=== PATIENT | male | born 1940 | race Caucasian/White ===

== ENCOUNTER 2020-03-07 01:36 | Inpatient (IN) | payer MEDICARE, MEDICAID ==
[~2020-03-07] VITALS: Ht 180.3 cm; Wt 113.1 kg
[2020-03-07] VITALS (31 sets, daily range): BP systolic 82–157; BP diastolic 37–73
[2020-03-07] MEDS ORDERED: PIP/TAZO PER PHARMACY MC PRN (02:45)
[2020-03-07] MEDS ORDERED: ONDANSETRON PF 4 MG/2 ML VIAL. IVP PRN (02:45)
[2020-03-07] MEDS ORDERED: NOREPINEPHRINE VIAL 8 MG in IV DEXTROSE 5% 250 ML IV PRN (02:45)
[2020-03-07] MEDS ORDERED: IV NORMAL SALINE 1000ML BAG 1,000 ML IV ONE (03:00)
[2020-03-07 03:26] LABS: RED BLOOD COUNT 2.01 x10^6/uL (4.30-5.70); RED CELL DISTRIBUTION WIDTH 14.3 % (11.5-14.5); WHITE BLOOD COUNT 6.2 x10^3/uL (4.0-11.0)
[2020-03-07 03:28] LABS: HEMATOCRIT 18.5 % (39.0-53.0); HEMOGLOBIN 6.4 g/dL (13.0-17.5)
[2020-03-07 03:35] LABS: CALCIUM 7.2 mg/dL (8.5-10.1); CREATININE 1.7 mg/dL (0.7-1.3); GFR 39.1; POTASSIUM 4.7 mmol/L (3.5-5.1)
[2020-03-07 03:41] LABS: ALBUMIN 2.3 g/dL (3.4-5.0); ALBUMIN/GLOBULIN RATIO 0.9 (1.0-1.7); TOTAL BILIRUBIN 0.1 mg/dL (0.2-1.0); TOTAL PROTEIN 4.8 g/dL (6.4-8.2)
[2020-03-07] MEDS: PANTOPRAZOLE SODIUM IV DRIP 80 MG in IV NORMAL SALINE 100ML 100 ML IV SCH ×2 (05:22→18:00)
[2020-03-07] MEDS ORDERED: ATROVENT HFA12.9 GM IH (06:08)
[2020-03-07] MEDS ORDERED: LISI2.5T PO (06:08)
[2020-03-07] MEDS ORDERED: MAGN400T44 PO (06:08)
[2020-03-07] MEDS ORDERED: HYDR-2761 PO (06:08)
[2020-03-07] MEDS ORDERED: FENO145T3 PO (06:08)
[2020-03-07] MEDS ORDERED: LOPE2TAB27 PO (06:08)
[2020-03-07] MEDS ORDERED: MEMA10TA PO (06:08)
[2020-03-07] MEDS ORDERED: ACET325T9 PO (06:08)
[2020-03-07] MEDS ORDERED: BREO ELLIPTA 11 EACH IH (06:08)
[2020-03-07] MEDS ORDERED: ALBU2.5V8 IH (06:08)
[2020-03-07] MEDS ORDERED: METF-658 PO (06:08)
[2020-03-07] MEDS ORDERED: ASPI1CPM PO (06:08)
[2020-03-07] MEDS ORDERED: CHOL500021 PO (06:08)
[2020-03-07] MEDS ORDERED: DONE10TA7 PO (06:08)
[2020-03-07] MEDS: PIPERACILLIN/TAZOBACTAM 2.25 GM in IV NORMAL SALINE 50ML 50 ML IV SCH ×3 (11:58→18:21)
--- NOTE | 2020-03-07 12:10 | NUR ---
IP: Pt COVID tested on 03/05/20 while at [facility] is confirmed positive requiring airborne/contact precautions using a face shield.
--- NOTE | 2020-03-07 12:37 | PDOC2 ---
GI CONSULT Reason For Consult: GI bleed HPI: HPI: 79 y/o male w/ dementia from [facility]. Seen in ER there from [facility]. +COVID-19. Per nurse and records, "vomiting blood" and dark stools. Was on aggrenox. H/o impulsivity and aggression. CT C/A/P w/ high density material in stomach, diverticulosis, cholelithiasis, left renal calculus, 5mm CLAIRE nodule. Records reviewed - h/o constipation, was on dysphagia diet. Transfusion in process, on PPI drip. PMH: PMH: HTN, COPD, dementia, DM, HLD, LBP, CAD, seasonal allergies ROS: Per HPI. Vitals: Vitals: Vital Signs Date Time Temp Pulse Resp B/P (MAP) Pulse Ox O2 Delivery O2 Flow Rate FiO2 03/07/20 12:00 Room Air 03/07/20 12:00 98.3 45 28 113/48 (69) 97 98.3 Labs: Labs: Laboratory Tests Test 03/07/20 03:10 White Blood Count 6.2 x10^3/uL (4.0-11.0) Red Blood Count 2.01 x10^6/uL (4.30-5.70) Hemoglobin 6.4 g/dL (13.0-17.5) Hematocrit 18.5 % (39.0-53.0) Mean Corpuscular Volume 92 fL (79-100) Mean Corpuscular Hemoglobin 32 pg (25-35) Mean Corpuscular Hemoglobin Concent 35 g/dL (31-37) Red Cell Distribution Width 14.3 % (11.5-14.5) Platelet Count 180 x10^3/uL (140-400) Sodium Level 143 mmol/L (136-145) Potassium Level 4.7 mmol/L (3.5-5.1) Chloride Level 113 mmol/L (98-107) Carbon Dioxide Level 24 mmol/L (21-32) Anion Gap 6 (6-14) Blood Urea Nitrogen 50 mg/dL (8-26) Creatinine 1.7 mg/dL (0.7-1.3) Estimated GFR (Cockcroft-Gault) 39.1 BUN/Creatinine Ratio 29 (6-20) Glucose Level 108 mg/dL (70-99) Calcium Level 7.2 mg/dL (8.5-10.1) Total Bilirubin 0.1 mg/dL (0.2-1.0) Aspartate Amino Transf (AST/SGOT) 15 U/L (15-37) Alanine Aminotransferase (ALT/SGPT) 15 U/L (16-63) Alkaline Phosphatase 28 U/L (46-116) Lactate Dehydrogenase 106 U/L (85-227) Troponin I Quantitative 0.274 ng/mL (0.000-0.055) Total Protein 4.8 g/dL (6.4-8.2) Albumin 2.3 g/dL (3.4-5.0) Albumin/Globulin Ratio 0.9 (1.0-1.7) Allergies: Coded Allergies: No Known Drug Allergies (Unverified , 03/07/20) Medications: Current Medications Medications (Trade) Dose Ordered Sig/Frieda Route PRN Reason Start Time Stop Time Status Last Admin Dose Admin Linezolid/Dextrose 300 ml @ 300 mls/hr Q12HR IV 03/07/20 05:00 03/07/20 10:43 Sodium Chloride 1,000 ml @ 30 mls/hr 1X ONCE IV 03/07/20 03:00 03/08/20 12:19 03/07/20 03:00 Pantoprazole Sodium 80 mg/ Sodium Chloride 100 ml @ 10 mls/hr Q10H IV 03/07/20 03:00 03/10/20 02:59 03/07/20 05:22 Piperacillin Sod/ Tazobactam Sod 2.25 gm/Sodium Chloride 50 ml @ 100 mls/hr Q6HRS IV 03/07/20 06:00 03/07/20 11:59 Imaging: Imaging: Per HPI. PE: GEN: NAD - "I got the shits!" HEENT: Atraumatic, PERRL LUNGS: diminished anteriorly, room air HEART: bradycardic ABD: quiet BS, non-specifically tender, soft EXTREMITY: No edema SKIN: No rashes, no jaundice NEURO/PSYCH: confused A/P: A/P: Dementia Hematemesis/melena Anemia, mildly elevated troponin, ?CKD Abnormal CT - high density material in stomach Diverticulosis -- Continue IV PPI, continue transfusions. Difficult situation w/ COVID + status and dementia. BEAN THOMPSON Mar 07, 2020 12:37
--- NOTE | 2020-03-07 12:37 | HP ---
ADMIT DATE: 03/07/2020 HISTORY OF PRESENT ILLNESS: The patient is a 79-year-old male patient whom I have seen yesterday at [facility] in [facility]. He was rapidly responded as he has had recurrent bouts of hematemesis. He has vomited blood at least 4 times in front of me. He was extremely clammy, hypertensive and we did multiple attempts to put an IV line, failed; and therefore, he was rushed to the Emergency Room where he was evaluated by the ER physician. He apparently has IV lines and was treated with a large amount of crystalloid. He received at least 3 liters of fluid. His H and H there was 9.2 and 29.8. His coagulation tests were normal except that D-dimer was slightly elevated at 0.64. His chemistry showed that his BUN is 45, creatinine was 1.9 and his lactic acid was high at 8.1. After stabilization, he was transferred to [facility] ICU to be evaluated by the fountain helper. It is worth noting that the patient was tested positive for COVID-19 and he apparently was on Aggrenox 1 capsule twice a day. The patient is demented and does not give much useful information on history of present illness. The patient was admitted to [facility] from [place], [place] as he was sent by his family. Apparently, has been very confused, agitated, does not remember why he is here. He was very paranoid in a strange environment. He is not very cooperative and he was admitted for inpatient psychiatric stabilization. Apparently, he is known to have profound dementia with associated behavioral issues and paranoia. PAST MEDICAL HISTORY: Significant for dementia of Alzheimer type. Apparently, he has been extremely agitated, aggressive, disruptive. He is known to have hypertension, vitamin D deficiency, type 2 diabetes mellitus, hyperlipidemia, chronic obstructive pulmonary disease, chronic low back pain, atherosclerotic coronary artery disease, seasonal allergies, chronic constipation, disorder of magnesium metabolism and history of falls. PAST SURGICAL HISTORY: Unremarkable. ALLERGIES: He has no known drug allergies. MEDICATIONS: He is on following medications: He is on fluvoxamine 50 mg once a day, divalproex 500 mg twice a day, quetiapine fumarate 50 mg at bedtime, olanzapine 2.5 mg every 2 hours, Breo Ellipta 1 puff twice a day, Namenda 10 mg twice a day, lisinopril 2.5 mg once a day, fenofibrate 145 mg once a day, Nicoderm CQ 7 mg patch transdermal once a day, Combivent 1 puff every 6 hours, albuterol sulfate inhaler 2 puffs every 6 hours. He is on metformin 500 mg with breakfast once a day, vitamin D 50,000 units once a week, magnesium oxide 400 mg twice a day, hydrocodone/APAP 5/325 one tablet 3 times a day, Aricept 10 mg at bedtime, dipyridamole/aspirin for Aggrenox 1 capsule twice a day, ondansetron 4 mg p.o. every 8 hours, loperamide 2 mg every 6 hours, magnesium hydroxide for milk of magnesia 30 mL p.o. daily p.r.n. for constipation. He is on acetaminophen 650 mg once a day. PHYSICAL EXAMINATION: GENERAL: Apparently on arrival to the Emergency Room, he was pale, clammy, diaphoretic. VITAL SIGNS: His heart rate was 68, blood pressure was 102/49. [facility], his blood pressure was as low as 80 systolic, temperature was 99, respiratory rate 20, and oxygen saturation was 98%. HEAD, EYES, EARS, NOSE AND THROAT: Normocephalic, atraumatic. NECK: Supple. HEART: Showed normal first and second heart sounds. No gallop or murmur. CHEST: Clear to auscultation. No crepitation or rhonchi. ABDOMEN: Distended, soft, nontender. NEUROLOGIC: He was demented without any lateralizing sign. He was awake, alert, responding appropriately. All cranial nerves intact. EXTREMITIES: He moves extremities without difficulty. LABORATORY DATA: His lab work on arrival to the Emergency Room showed a white cell count of 18,100, hemoglobin 9.2, hematocrit 29.8, MCV 99 and platelet count 279,000. His chemistry showed a serum sodium 137, potassium 5.9, chloride 104, bicarbonate 15, anion gap of 18, BUN 45, creatinine 1.9, estimated GFR was 34 mL per minute, his glucose 175, calcium was 8.7. Total bilirubin, AST, ALT, alkaline phosphatase were normal. CK was 121. Troponin was 0.077. Total protein was 6.9, albumin was 2.9. Amylase and lipase were normal. His prothrombin time, INR and aPTT normal. D-dimer slightly elevated at 0.64. Urinalysis showed the urine was yellow, cloudy with a pH of 5, specific gravity more than 1.030, small amount of protein, negative for glucose, trace of ketones, small amount of blood, negative for nitrite. There is trace of leukocyte esterase, occasional rbc's, 5-10 wbc's and very few bacteria. Toxic screen showed valproic acid was 20 mcg/mL, which is well below the therapeutic range. His lactic acid was extremely high at 8.1 millimole per liter. ASSESSMENT AND PLAN: 1. The patient was given 80 mg of Protonix and started on Protonix drip. He has received a total of 3 liters of normal saline and was treated with Zosyn as well as Zithromax and was transferred to [facility] for further evaluation and treatment. He has had a CT scan of the chest, abdomen and pelvis, which basically showed the patient has high-density material noted within the stomach, which is nonspecific, could be just related to ingested material, correlate for hemorrhagic product. 2. He has diverticulosis without evidence of acute diverticulitis. 3. He has cholelithiasis. 4. Nonobstructive left renal calculus. 5. A 5 mm nodule in the left upper lobe in a low-risk patient. No further followup imaging is recommended. FINAL TRANSFER DIAGNOSES: Septic hemorrhagic shock, gastrointestinal bleed, positive for COVID-19, elevated troponin. We will keep him n.p.o. Continue with Protonix drip. Continue IV fluid. Monitor his H and H and transfuse him as needed. We will consult the fountain helper to assist with his management. ONEAL MENA MD DR: LYUDMILA/emily JOB#: [id number] / [id number]
--- NOTE | 2020-03-07 13:27 | PN ---
DATE: 03/07/2020 SUBJECTIVE: The patient is resting slightly propped up in bed, in no apparent distress, awake, alert, continued to complain of severe back pain. Nursing staff stated he has multiple bouts of melena stool, however he has no further episodes, nausea, vomiting or hematemesis. OBJECTIVE: GENERAL: When I examined him this morning, he looked pale, not jaundice, cyanosis or thyromegaly. No jugular venous distention. No limb edema. VITAL SIGNS: His heart rate was 45, blood pressure was 113/48, temperature 98.3, respiratory rate was 28 and oxygen saturation was 97% on room air. HEAD, EYES, EARS, NOSE AND THROAT: Showed normocephalic, atraumatic. NECK: Supple. HEART: Showed normal first and second heart sounds. No gallop or murmur. CHEST: Clear to auscultation. No crepitation or rhonchi. ABDOMEN: Distended, soft, nontender. NEUROLOGIC: He was demented, but without any obvious lateralizing sign. All his cranial nerves are intact. He moves extremities without difficulty. INTAKE AND OUTPUT: Were incompletely recorded. LABORATORY AND DIAGNOSTIC DATA: His lab work this morning showed a white cell count 6200, hemoglobin 6.4, hematocrit 18.5, MCV 92, and platelet count of 180,000. His chemistry showed a serum sodium of 143, potassium 4.7, chloride 113, bicarbonate 24, anion gap of 6, BUN 50, creatinine 1.7, estimated GFR was 39 mL per minute, his glucose 108, calcium was 7.2. Total bilirubin, AST, ALT, alkaline phosphatase were normal. Lactate dehydrogenase was 106 and his troponin was 0.274. Total protein was 4.8, albumin was 2.3. ASSESSMENT: In summary, this is a 79-year-old male patient who was at [facility] where he had multiple episodes of hematemesis. He was extremely diaphoretic, pale and hypotensive. He was rushed to the Emergency Room of [facility] where he was treated with IV fluid, did receive a total of 3 liters of normal saline and was started on IV antibiotics and Protonix drip. He has multiple other medical problems. His other medical problems include hypertension, type 2 diabetes mellitus, hyperlipidemia, chronic obstructive pulmonary disease, chronic low back pain, vitamin D deficiency, coronary artery disease, recurrent falls, seasonal allergies and chronic constipation. PLAN: The patient has received 2 units of packed RBCs. We will continue obviously with IV fluid, continue with Protonix drip. We have consulted the machine gunner and monitor his H and H and other labs closely. Also, it is worth noting that he is on Aggrenox 1 capsule twice a day, the indication of which is not clear to me and also that he is COVID-19 positive. ONEAL MENA MD DR: LYUDMILA/emily JOB#: [id number] / [id number]
--- NOTE | 2020-03-07 13:48 | PDOC ---
Provider Note Provider Note Anesthesiology Called to place a Central Line in a Covid+ patient requiring IV access. Consent previously obtained. Right IJ TLC place in usual sterile fashion with US guidance. All 3 ports easily aspirate and flushed. Cath sutured in place. Pt. tolerated well. VSS throughout. CXR pending to confirm placement. David Hansen MD Justicifation of Admission Dx: Justifications for Admission: Justification of Admission Dx: N/A RUTH HANSEN MD Mar 07, 2020 13:48
--- NOTE | 2020-03-07 14:34 | NUR ---
SS following for discharge planning. SS reviewed pt chart and discussed with pt RN. Pt admitted from [facility]. Pt is LTC resident from [facility], ; fax [phone]. Pt was sent to [facility] from long-term for psychiatric stabilization. Pt COVID19 positive. Pt currently on room air, IV Zosyn, and IV Zyvox. SS will continue to follow for discharge planning.
[2020-03-07 15:01] LABS: BASO % 0 % (0-3); EOS % 0 % (0-3); HEMATOCRIT 22.1 % (39.0-53.0); HEMOGLOBIN 7.6 g/dL (13.0-17.5); LYMPH # 1.3 x10^3/uL (1.0-4.8); LYMPH % 27 % (24-48); MEAN CORPUSCULAR HEMOGLOBIN 31 pg (25-35); MEAN CORPUSCULAR HGB CONC 35 g/dL (31-37); MEAN CORPUSCULAR VOLUME 91 fL (79-100); MONO # 0.4 x10^3/uL (0.0-1.1); MONO % 9 % (0-9); NEUT # 3.2 x10^3/uL (1.8-7.7); NEUT % 64 % (31-73); PLATELET COUNT 182 x10^3/uL (140-400); RED BLOOD COUNT 2.44 x10^6/uL (4.30-5.70); RED CELL DISTRIBUTION WIDTH 14.8 % (11.5-14.5)
--- NOTE | 2020-03-07 16:08 | RAD ---
Exam: Chest one view INDICATION: Line placement TECHNIQUE: Frontal view of the chest Comparisons: None FINDINGS: Right IJ catheter with tip in the SVC. Heart is mildly enlarged. Pulmonary vessels are within normal limits. Easy opacities at the lung bases bilaterally. No pleural effusion. IMPRESSION: Right IJ catheter as described above. Findings likely related to mild pulmonary edema. Electronically signed by: Jose Juan Castellanos MD (03/07/2020 4:04 PM) [id number]
[2020-03-07] MEDS: fentaNYL PF VIAL 100 MCG/2 ML VIAL IVP PRN (23:17)
[2020-03-08] VITALS (16 sets, daily range): BP systolic 101–145; BP diastolic 47–66
[2020-03-08] MEDS: PIPERACILLIN/TAZOBACTAM 2.25 GM in IV NORMAL SALINE 50ML 50 ML IV SCH ×3 (00:02→13:15)
[2020-03-08] MEDS: PANTOPRAZOLE SODIUM IV DRIP 80 MG in IV NORMAL SALINE 100ML 100 ML IV SCH ×2 (05:09→21:48)
[2020-03-08 06:04] LABS: HEMATOCRIT 26.6 % (39.0-53.0); RED BLOOD COUNT 2.99 x10^6/uL (4.30-5.70); RED CELL DISTRIBUTION WIDTH 17.1 % (11.5-14.5); WHITE BLOOD COUNT 5.5 x10^3/uL (4.0-11.0)
[2020-03-08 06:09] LABS: ALBUMIN 2.6 g/dL (3.4-5.0); CALCIUM 7.6 mg/dL (8.5-10.1); CREATININE 1.5 mg/dL (0.7-1.3); GFR 45.1; POTASSIUM 4.2 mmol/L (3.5-5.1); TOTAL BILIRUBIN 0.5 mg/dL (0.2-1.0); TOTAL PROTEIN 5.2 g/dL (6.4-8.2)
--- NOTE | 2020-03-08 09:17 | PN ---
DATE: 03/08/2020 SUBJECTIVE: The patient is resting, slightly propped up in bed, in no apparent distress, awake, alert, very confused, continued to complain of back pain, but denied any other complaint. The nursing staff states that he has no further episodes of hematemesis or melena. PHYSICAL EXAMINATION: GENERAL: When I examined him, he looked pale, but no jaundice, cyanosis or thyromegaly. No jugular venous distention. No lower limb edema. VITAL SIGNS: His heart rate was 44, blood pressure was 122/61, temperature was 98.6, respiratory rate was 20, and oxygen saturation was 95%. HEAD, EYES, EARS, NOSE AND THROAT: Showed normocephalic, atraumatic. NECK: Supple. HEART: Showed normal first and second heart sounds with no gallop, rub or murmur. CHEST: Clear to auscultation. No crepitation or rhonchi. ABDOMEN: Distended, soft, nontender. NEUROLOGIC: He was awake, alert, very confused; however, all his cranial nerves are intact. He moves extremities without difficulty. His intake and output were incompletely recorded. LABORATORY DATA: His lab work as of this morning showed that his white cell count is 5500, hemoglobin 9, hematocrit 27, MCV 89 and platelet count of 170,000. Serum sodium was 144, potassium 4.2, chloride 112, bicarbonate 23, anion gap of 9, BUN 35, creatinine 1.5, estimated GFR was 45 mL per minute, his glucose was 85, calcium was 7.6. Total bilirubin, AST, ALT, alkaline phosphatase were normal. Total protein was 5.2, albumin was 2.6. His troponin was slightly elevated. ASSESSMENT: 1. This is a 79-year-old male patient who was at [facility] where he had multiple episodes of hematemesis, was evaluated in the Emergency Room of [facility], was transferred to [facility]. 2. Acute blood loss anemia with hemoglobin and hematocrit that dropped down to 6.4 and 18.6 for which he received 2 units of packed RBCs. His H and H today is 9 and 26. 3. Acute kidney injury has improved. His BUN and creatinine are down to 35 and 1.5. 4. Severe protein-calorie malnutrition with serum albumin of only 2.6 mg/dL. 5. Aspiration pneumonia and sepsis for which he is on Zosyn and Zyvox. 6. Other medical problems include obviously dementia of Alzheimer type, hypertension, type 2 diabetes mellitus, hyperlipidemia, chronic obstructive pulmonary disease, chronic low back pain, chronic constipation. PLAN: To continue with n.p.o. status. Continue with proton pump inhibitor drip. Continue with IV antibiotic. Continue with IV fluids. I will check his H and H this afternoon and tomorrow. ONEAL MENA MD DR: LYUDMILA/emily JOB#: [id number] / [id number]
[2020-03-08] MEDS: fentaNYL PF VIAL 100 MCG/2 ML VIAL IVP PRN (09:43)
[2020-03-08] MEDS: AMINO AC 3%/ELECTROLYTE/GLYCER 1,000 ML IV SCH ×3 (09:53→21:51)
--- NOTE | 2020-03-08 12:41 | PDOC ---
G I PROGRESS NOTE Reason for Follow-up Hematemesis/acute blood loss anemia Subjective No further bleeding Physical Exam Lungs decreased BS CV S1 S2 ABD +BS, soft, nontender Review of Relevant I have reviewed the following items johanna (where applicable) has been applied. Labs Laboratory Tests Test 03/07/20 03:10 03/07/20 14:35 03/08/20 05:40 White Blood Count 6.2 x10^3/uL (4.0-11.0) 5.0 x10^3/uL (4.0-11.0) 5.5 x10^3/uL (4.0-11.0) Red Blood Count 2.01 x10^6/uL (4.30-5.70) 2.44 x10^6/uL (4.30-5.70) 2.99 x10^6/uL (4.30-5.70) Hemoglobin 6.4 g/dL (13.0-17.5) 7.6 g/dL (13.0-17.5) 9.0 g/dL (13.0-17.5) Hematocrit 18.5 % (39.0-53.0) 22.1 % (39.0-53.0) 26.6 % (39.0-53.0) Mean Corpuscular Volume 92 fL (79-100) 91 fL (79-100) 89 fL (79-100) Mean Corpuscular Hemoglobin 32 pg (25-35) 31 pg (25-35) 30 pg (25-35) Mean Corpuscular Hemoglobin Concent 35 g/dL (31-37) 35 g/dL (31-37) 34 g/dL (31-37) Red Cell Distribution Width 14.3 % (11.5-14.5) 14.8 % (11.5-14.5) 17.1 % (11.5-14.5) Platelet Count 180 x10^3/uL (140-400) 182 x10^3/uL (140-400) 170 x10^3/uL (140-400) Sodium Level 143 mmol/L (136-145) 144 mmol/L (136-145) Potassium Level 4.7 mmol/L (3.5-5.1) 4.2 mmol/L (3.5-5.1) Chloride Level 113 mmol/L (98-107) 112 mmol/L (98-107) Carbon Dioxide Level 24 mmol/L (21-32) 23 mmol/L (21-32) Anion Gap 6 (6-14) 9 (6-14) Blood Urea Nitrogen 50 mg/dL (8-26) 35 mg/dL (8-26) Creatinine 1.7 mg/dL (0.7-1.3) 1.5 mg/dL (0.7-1.3) Estimated GFR (Cockcroft-Gault) 39.1 45.1 BUN/Creatinine Ratio 29 (6-20) 23 (6-20) Glucose Level 108 mg/dL (70-99) 85 mg/dL (70-99) Calcium Level 7.2 mg/dL (8.5-10.1) 7.6 mg/dL (8.5-10.1) Total Bilirubin 0.1 mg/dL (0.2-1.0) 0.5 mg/dL (0.2-1.0) Aspartate Amino Transf (AST/SGOT) 15 U/L (15-37) 20 U/L (15-37) Alanine Aminotransferase (ALT/SGPT) 15 U/L (16-63) 17 U/L (16-63) Alkaline Phosphatase 28 U/L (46-116) 31 U/L (46-116) Lactate Dehydrogenase 106 U/L (85-227) Troponin I Quantitative 0.274 ng/mL (0.000-0.055) Total Protein 4.8 g/dL (6.4-8.2) 5.2 g/dL (6.4-8.2) Albumin 2.3 g/dL (3.4-5.0) 2.6 g/dL (3.4-5.0) Albumin/Globulin Ratio 0.9 (1.0-1.7) 1.0 (1.0-1.7) Neutrophils (%) (Auto) 64 % (31-73) Lymphocytes (%) (Auto) 27 % (24-48) Monocytes (%) (Auto) 9 % (0-9) Eosinophils (%) (Auto) 0 % (0-3) Basophils (%) (Auto) 0 % (0-3) Neutrophils # (Auto) 3.2 x10^3/uL (1.8-7.7) Lymphocytes # (Auto) 1.3 x10^3/uL (1.0-4.8) Monocytes # (Auto) 0.4 x10^3/uL (0.0-1.1) Eosinophils # (Auto) 0.0 x10^3/uL (0.0-0.7) Basophils # (Auto) 0.0 x10^3/uL (0.0-0.2) Lactic Acid Level 0.6 mmol/L (0.4-2.0) Laboratory Tests Test 03/07/20 14:35 03/08/20 05:40 White Blood Count 5.0 x10^3/uL (4.0-11.0) 5.5 x10^3/uL (4.0-11.0) Red Blood Count 2.44 x10^6/uL (4.30-5.70) 2.99 x10^6/uL (4.30-5.70) Hemoglobin 7.6 g/dL (13.0-17.5) 9.0 g/dL (13.0-17.5) Hematocrit 22.1 % (39.0-53.0) 26.6 % (39.0-53.0) Mean Corpuscular Volume 91 fL (79-100) 89 fL (79-100) Mean Corpuscular Hemoglobin 31 pg (25-35) 30 pg (25-35) Mean Corpuscular Hemoglobin Concent 35 g/dL (31-37) 34 g/dL (31-37) Red Cell Distribution Width 14.8 % (11.5-14.5) 17.1 % (11.5-14.5) Platelet Count 182 x10^3/uL (140-400) 170 x10^3/uL (140-400) Neutrophils (%) (Auto) 64 % (31-73) Lymphocytes (%) (Auto) 27 % (24-48) Monocytes (%) (Auto) 9 % (0-9) Eosinophils (%) (Auto) 0 % (0-3) Basophils (%) (Auto) 0 % (0-3) Neutrophils # (Auto) 3.2 x10^3/uL (1.8-7.7) Lymphocytes # (Auto) 1.3 x10^3/uL (1.0-4.8) Monocytes # (Auto) 0.4 x10^3/uL (0.0-1.1) Eosinophils # (Auto) 0.0 x10^3/uL (0.0-0.7) Basophils # (Auto) 0.0 x10^3/uL (0.0-0.2) Lactic Acid Level 0.6 mmol/L (0.4-2.0) Sodium Level 144 mmol/L (136-145) Potassium Level 4.2 mmol/L (3.5-5.1) Chloride Level 112 mmol/L (98-107) Carbon Dioxide Level 23 mmol/L (21-32) Anion Gap 9 (6-14) Blood Urea Nitrogen 35 mg/dL (8-26) Creatinine 1.5 mg/dL (0.7-1.3) Estimated GFR (Cockcroft-Gault) 45.1 BUN/Creatinine Ratio 23 (6-20) Glucose Level 85 mg/dL (70-99) Calcium Level 7.6 mg/dL (8.5-10.1) Total Bilirubin 0.5 mg/dL (0.2-1.0) Aspartate Amino Transf (AST/SGOT) 20 U/L (15-37) Alanine Aminotransferase (ALT/SGPT) 17 U/L (16-63) Alkaline Phosphatase 31 U/L (46-116) Total Protein 5.2 g/dL (6.4-8.2) Albumin 2.6 g/dL (3.4-5.0) Albumin/Globulin Ratio 1.0 (1.0-1.7) Medications Current Medications Piperacillin Sod/ Tazobactam Sod (Zosyn Per Pharmacy) 1 each PRN DAILY PRN MC SEE COMMENTS; Start 03/07/20 at 02:45 Linezolid/Dextrose 300 ml @ 300 mls/hr Q12HR IV Last administered on 03/08/20at 09:50; Start 03/07/20 at 05:00 Sodium Chloride 1,000 ml @ 30 mls/hr 1X ONCE IV Last administered on 03/07/20at 03:00; Start 03/07/20 at 03:00; Stop 03/08/20 at 12:19; Status DC Pantoprazole Sodium 80 mg/ Sodium Chloride 100 ml @ 10 mls/hr Q10H IV Last administered on 03/08/20at 05:09; Start 03/07/20 at 03:00; Stop 03/10/20 at 02:59 Norepinephrine Bitartrate 8 mg/ Dextrose 258 ml @ 22.446 mls/ hr CONT PRN IV PER PROTOCOL; Start 03/07/20 at 02:45 Fentanyl Citrate (Fentanyl 2ml Vial) 50 mcg PRN Q2HR PRN IVP SEVERE PAIN 7-10 Last administered on 03/08/20at 09:43; Start 03/07/20 at 02:45 Ondansetron HCl (Zofran) 4 mg PRN Q6HRS PRN IVP NAUSEA/VOMITING 1ST CHOICE; Start 03/07/20 at 02:45 Piperacillin Sod/ Tazobactam Sod 2.25 gm/Sodium Chloride 50 ml @ 100 mls/hr Q6HRS IV Last administered on 03/08/20at 06:01; Start 03/07/20 at 06:00 Amino Acids/ Glycerin/ Electrolytes 1,000 ml @ 80 mls/hr [id number] IV Last administered on 03/08/20at 09:53; Start 03/08/20 at 09:00 Active Scripts Active Reported Metformin Hcl Er (Metformin Hcl) 500 Mg Tab.er.24h 500 Mg PO DAILYWBKFT Namenda (Memantine Hcl) 10 Mg Tablet 10 Mg PO BID Magnesium Oxide 400 Mg Tablet 400 Mg PO 1-2XD PRN Loperamide (Loperamide Hcl) 2 Mg Tablet 1 Tab PO Q4HRS 30 Days Lisinopril 2.5 Mg Tablet 1 Tab PO DAILY Atrovent Hfa (Ipratropium [place]) 12.9 Gm Hfa.aer.ad 2 Puff IH QID Hydrocodone-Apap 5-325 (Hydrocodone Bit/Acetaminophen) 1 Tab Tablet 1 Tab PO PRN Q6HRS PRN Breo Ellipta 100-25 Mcg Inh (Fluticasone/Vilanterol) 1 Each Aer.pow.ba 1 Puff IH DAILY Fenofibrate (Fenofibrate Nanocrystallized) 145 Mg Tablet 145 Mg PO DAILY Donepezil Hcl 10 Mg Tablet 1 Tab PO DAILY D3-50 (Cholecalciferol (Vitamin D3)) 50,000 Unit Capsule 50,000 Unit PO 1X Aggrenox 25 Mg-200 Mg Capsule (Aspirin/Dipyridamole) 1 Each Cpmp.12hr 1 Cap PO BID Proair Hfa Inhaler (Albuterol Sulfate) 8.5 Gm Hfa.aer.ad 2 Puff IH PRN Q4-6HRS PRN 21 Days Tylenol (Acetaminophen) 325 Mg Tablet 1-2 Tab PO QID Vitals/I & O Vital Sign - Last 24 Hours 03/07/20 03/07/20 03/07/20 03/07/20 13:00 14:00 15:00 16:00 Pulse 42 46 45 Resp 23 23 25 B/P (MAP) 105/55 (72) 118/62 (80) 121/53 (75) Pulse Ox 99 98 97 O2 Delivery Room Air Room Air Room Air Room Air 03/07/20 03/07/20 03/07/20 03/07/20 16:00 16:00 16:27 17:00 Temp 98.4 98.3 98.4 98.4 98.3 98.4 Pulse 48 44 48 52 Resp 26 24 26 21 B/P (MAP) 117/53 (74) 121/53 117/53 104/48 (66) Pulse Ox 97 95 O2 Delivery Room Air Room Air 03/07/20 03/07/20 03/07/20 03/07/20 18:00 19:00 19:27 19:42 Temp 98.4 98.4 98.4 98.4 98.4 98.4 Pulse 55 44 44 44 Resp 28 23 23 22 B/P (MAP) 109/52 (71) 126/46 (72) 126/46 112/50 Pulse Ox 98 98 O2 Delivery Room Air Room Air 03/07/20 03/07/20 03/07/20 03/07/20 20:00 20:00 21:00 22:00 Temp 98.4 98.4 Pulse 40 46 45 Resp 26 26 30 B/P (MAP) 104/63 (77) 116/56 (76) 119/41 (67) Pulse Ox 98 98 98 O2 Delivery Room Air Room Air Room Air Room Air 03/07/20 03/07/20 03/08/20 03/08/20 23:00 23:17 00:00 00:00 Pulse 48 48 Resp 29 29 26 B/P (MAP) 114/52 (72) 129/54 (79) Pulse Ox 95 95 95 O2 Delivery Room Air Room Air Room Air Room Air 03/08/20 03/08/20 03/08/20 03/08/20 00:02 01:00 02:00 03:00 Pulse 45 49 45 Resp 22 20 21 27 B/P (MAP) 145/66 (92) 127/62 (83) 127/55 (79) Pulse Ox 94 93 96 96 O2 Delivery Room Air Room Air Room Air Room Air 03/08/20 03/08/20 03/08/20 03/08/20 04:00 04:00 05:00 06:00 Temp 98.6 98.6 Pulse 47 52 41 Resp 23 18 15 B/P (MAP) 119/51 (73) 142/59 (86) 112/53 (72) Pulse Ox 95 95 97 O2 Delivery Room Air Room Air Room Air Room Air 03/08/20 03/08/20 03/08/20 03/08/20 07:37 08:00 08:00 09:18 Temp 98.1 98.1 Pulse 44 43 41 Resp 20 24 36 B/P (MAP) 122/61 (81) 120/54 (76) 125/63 (83) Pulse Ox 95 94 95 O2 Delivery Room Air Room Air Room Air Room Air 03/08/20 03/08/20 03/08/20 09:43 09:57 11:27 Pulse 39 37 Resp 22 11 20 B/P (MAP) 117/51 (73) 101/53 (69) Pulse Ox 95 97 98 O2 Delivery Room Air Room Air Room Air Intake and Output 03/07/20 03/07/20 03/08/20 15:08 23:08 07:08 Intake Total 1226 ml 500 ml 110 ml Output Total 0 ml 250 ml Balance 1226 ml 500 ml -140 ml Problem List Acute blood loss anemia- most likely secondary to NSAID induced PUD, with coivd + status, medical therapy as mortality is much higher for elderly patient with anesthesia. PPI Rx, transfusionsal support, advance diet in am if Hg stable and no further bleeding. Justicifation of Admission Dx: Justifications for Admission: Justification of Admission Dx: N/A CHERIE GONZALEZ MD Mar 08, 2020 12:41
--- NOTE | 2020-03-08 18:27 | NUR ---
Patient forgetful, reoriented several times today. Very pleasant personality, No blood observed in stools today. Patient request to eat. Educated patient on reason GI wants to wait one more day. Patient verbalized understanding. Patient placed on PPN until diet is entered. VSS
[2020-03-08] MEDS: PIPERACILLIN/TAZOBACTAM 3.375 GM in IV NORMAL SALINE 50ML 50 ML IV SCH ×2 (19:15→23:51)
[2020-03-09 03:00] VITALS: BP 127/47
[2020-03-09] MEDS: PANTOPRAZOLE SODIUM IV DRIP 80 MG in IV NORMAL SALINE 100ML 100 ML IV SCH ×2 (03:38→16:14)
[2020-03-09] MEDS: PIPERACILLIN/TAZOBACTAM 3.375 GM in IV NORMAL SALINE 50ML 50 ML IV SCH ×3 (05:46→18:01)
[2020-03-09 06:18] LABS: HEMATOCRIT 25.7 % (39.0-53.0); HEMOGLOBIN 8.6 g/dL (13.0-17.5); RED BLOOD COUNT 2.87 x10^6/uL (4.30-5.70); RED CELL DISTRIBUTION WIDTH 16.6 % (11.5-14.5); WHITE BLOOD COUNT 4.1 x10^3/uL (4.0-11.0)
[2020-03-09 06:36] LABS: CALCIUM 7.9 mg/dL (8.5-10.1); CREATININE 1.3 mg/dL (0.7-1.3); GFR 53.3; POTASSIUM 3.9 mmol/L (3.5-5.1)
[2020-03-09 07:00] VITALS: BP 124/55
[2020-03-09] MEDS: AMINO AC 3%/ELECTROLYTE/GLYCER 1,000 ML IV SCH ×2 (07:53→22:30)
--- NOTE | 2020-03-09 09:38 | PN ---
DATE: 03/09/2020 SUBJECTIVE: The patient is resting, slightly propped up in bed, in no apparent distress. On questioning him, he denies any complaint. Nursing staff did not voice any concerns and stated he has uneventful night. In particular, he has no further episodes of hematemesis or melena. He has been hemodynamically stable and his H and H have been stable. PHYSICAL EXAMINATION: GENERAL: When I examined him, he looked pale, but no jaundice, cyanosis or thyromegaly. No jugular venous distention. No limb edema. VITAL SIGNS: His heart rate was 41, blood pressure was 124/55, temperature 98.1, respiratory rate was 21 and oxygen saturation was 94% on room air. HEENT: Showed normocephalic, atraumatic. NECK: Supple. HEART: Showed normal first and second heart sounds. No gallop or murmur. CHEST: Clear to auscultation. No crepitation or rhonchi. ABDOMEN: Distended, soft, nontender. NEUROLOGIC: He is demented, but without any obvious lateralizing sign. His intake over the last 24 hours was 1800, output was 250. LABORATORY DATA: As of this morning, his white cell count was 4000, hemoglobin 8.6, hematocrit 25.7, MCV 90 and platelet count of 149,000. His chemistry showed a serum sodium 142, potassium 3.9, chloride 110, bicarbonate 23, anion gap of 9, BUN 24, creatinine 1.3, estimated GFR was 53 mL per minute. His glucose was 89 and calcium was 7.9. ASSESSMENT: 1. Acute blood loss anemia with hemoglobin and hematocrit that dropped down to 6.4 and 18.6. Received 2 units of packed RBCs. Today's H and H was 8.6 and 25.7. 2. He probably bled from peptic ulcer disease induced by Aggrenox. 3. Acute kidney injury, improving. His BUN and creatinine are down to 24 and 1.3. 4. Severe protein-calorie malnutrition. Serum albumin is only 2.6 g/dL. 5. Aspiration pneumonia. 6. Sepsis, for which he is on Zosyn and Zyvox. 7. Other medical problems include: A. Dementia of Alzheimer's type. B. Hypertension. C. Type 2 diabetes mellitus. D. Hyperlipidemia. E. Chronic obstructive pulmonary disease. F. Chronic back pain. G. Chronic constipation. PLAN: To start him on a clear liquid diet, start him also on oral hydrocodone, continue with IV antibiotic. His blood cultures so far showed no growth. These were taken at [facility]. ONEAL MENA MD DR: LYUDMILA/emily JOB#: [id number] / [id number]
[2020-03-09 12:00] VITALS: BP 131/58
[2020-03-09] MEDS: HYDROcodone/APAP 5/325MG 1 TAB TABLET PO PRN ×2 (13:03→21:49)
--- NOTE | 2020-03-09 14:00 | PDOC ---
G I PROGRESS NOTE Reason for Follow-up Hematemesis/acute blood anemia Subjective No further bleeding Physical Exam Lungs decreased BS CV S1 S2 ABD +BS , soft, nontender Review of Relevant I have reviewed the following items johanna (where applicable) has been applied. Labs Laboratory Tests Test 03/07/20 14:35 03/08/20 05:40 03/09/20 06:00 White Blood Count 5.0 x10^3/uL (4.0-11.0) 5.5 x10^3/uL (4.0-11.0) 4.1 x10^3/uL (4.0-11.0) Red Blood Count 2.44 x10^6/uL (4.30-5.70) 2.99 x10^6/uL (4.30-5.70) 2.87 x10^6/uL (4.30-5.70) Hemoglobin 7.6 g/dL (13.0-17.5) 9.0 g/dL (13.0-17.5) 8.6 g/dL (13.0-17.5) Hematocrit 22.1 % (39.0-53.0) 26.6 % (39.0-53.0) 25.7 % (39.0-53.0) Mean Corpuscular Volume 91 fL (79-100) 89 fL (79-100) 90 fL (79-100) Mean Corpuscular Hemoglobin 31 pg (25-35) 30 pg (25-35) 30 pg (25-35) Mean Corpuscular Hemoglobin Concent 35 g/dL (31-37) 34 g/dL (31-37) 34 g/dL (31-37) Red Cell Distribution Width 14.8 % (11.5-14.5) 17.1 % (11.5-14.5) 16.6 % (11.5-14.5) Platelet Count 182 x10^3/uL (140-400) 170 x10^3/uL (140-400) 149 x10^3/uL (140-400) Neutrophils (%) (Auto) 64 % (31-73) Lymphocytes (%) (Auto) 27 % (24-48) Monocytes (%) (Auto) 9 % (0-9) Eosinophils (%) (Auto) 0 % (0-3) Basophils (%) (Auto) 0 % (0-3) Neutrophils # (Auto) 3.2 x10^3/uL (1.8-7.7) Lymphocytes # (Auto) 1.3 x10^3/uL (1.0-4.8) Monocytes # (Auto) 0.4 x10^3/uL (0.0-1.1) Eosinophils # (Auto) 0.0 x10^3/uL (0.0-0.7) Basophils # (Auto) 0.0 x10^3/uL (0.0-0.2) Lactic Acid Level 0.6 mmol/L (0.4-2.0) Sodium Level 144 mmol/L (136-145) 142 mmol/L (136-145) Potassium Level 4.2 mmol/L (3.5-5.1) 3.9 mmol/L (3.5-5.1) Chloride Level 112 mmol/L (98-107) 110 mmol/L (98-107) Carbon Dioxide Level 23 mmol/L (21-32) 23 mmol/L (21-32) Anion Gap 9 (6-14) 9 (6-14) Blood Urea Nitrogen 35 mg/dL (8-26) 24 mg/dL (8-26) Creatinine 1.5 mg/dL (0.7-1.3) 1.3 mg/dL (0.7-1.3) Estimated GFR (Cockcroft-Gault) 45.1 53.3 BUN/Creatinine Ratio 23 (6-20) Glucose Level 85 mg/dL (70-99) 89 mg/dL (70-99) Calcium Level 7.6 mg/dL (8.5-10.1) 7.9 mg/dL (8.5-10.1) Total Bilirubin 0.5 mg/dL (0.2-1.0) Aspartate Amino Transf (AST/SGOT) 20 U/L (15-37) Alanine Aminotransferase (ALT/SGPT) 17 U/L (16-63) Alkaline Phosphatase 31 U/L (46-116) Total Protein 5.2 g/dL (6.4-8.2) Albumin 2.6 g/dL (3.4-5.0) Albumin/Globulin Ratio 1.0 (1.0-1.7) Laboratory Tests Test 03/09/20 06:00 White Blood Count 4.1 x10^3/uL (4.0-11.0) Red Blood Count 2.87 x10^6/uL (4.30-5.70) Hemoglobin 8.6 g/dL (13.0-17.5) Hematocrit 25.7 % (39.0-53.0) Mean Corpuscular Volume 90 fL (79-100) Mean Corpuscular Hemoglobin 30 pg (25-35) Mean Corpuscular Hemoglobin Concent 34 g/dL (31-37) Red Cell Distribution Width 16.6 % (11.5-14.5) Platelet Count 149 x10^3/uL (140-400) Sodium Level 142 mmol/L (136-145) Potassium Level 3.9 mmol/L (3.5-5.1) Chloride Level 110 mmol/L (98-107) Carbon Dioxide Level 23 mmol/L (21-32) Anion Gap 9 (6-14) Blood Urea Nitrogen 24 mg/dL (8-26) Creatinine 1.3 mg/dL (0.7-1.3) Estimated GFR (Cockcroft-Gault) 53.3 Glucose Level 89 mg/dL (70-99) Calcium Level 7.9 mg/dL (8.5-10.1) Medications Current Medications Piperacillin Sod/ Tazobactam Sod (Zosyn Per Pharmacy) 1 each PRN DAILY PRN MC SEE COMMENTS; Start 03/07/20 at 02:45 Linezolid/Dextrose 300 ml @ 300 mls/hr Q12HR IV Last administered on 03/09/20at 07:52; Start 03/07/20 at 05:00 Sodium Chloride 1,000 ml @ 30 mls/hr 1X ONCE IV Last administered on 03/07/20at 03:00; Start 03/07/20 at 03:00; Stop 03/08/20 at 12:19; Status DC Pantoprazole Sodium 80 mg/ Sodium Chloride 100 ml @ 10 mls/hr Q10H IV Last administered on 03/09/20at 03:38; Start 03/07/20 at 03:00; Stop 03/10/20 at 02:59 Norepinephrine Bitartrate 8 mg/ Dextrose 258 ml @ 22.446 mls/ hr CONT PRN IV PER PROTOCOL; Start 03/07/20 at 02:45 Fentanyl Citrate (Fentanyl 2ml Vial) 50 mcg PRN Q2HR PRN IVP SEVERE PAIN 7-10 Last administered on 03/08/20at 09:43; Start 03/07/20 at 02:45 Ondansetron HCl (Zofran) 4 mg PRN Q6HRS PRN IVP NAUSEA/VOMITING 1ST CHOICE Last administered on 03/09/20at 12:09; Start 03/07/20 at 02:45 Piperacillin Sod/ Tazobactam Sod 2.25 gm/Sodium Chloride 50 ml @ 100 mls/hr Q6HRS IV Last administered on 03/08/20at 13:15; Start 03/07/20 at 06:00; Stop 03/08/20 at 14:44; Status DC Amino Acids/ Glycerin/ Electrolytes 1,000 ml @ 80 mls/hr [id number] IV Last administered on 03/09/20at 07:53; Start 03/08/20 at 09:00 Piperacillin Sod/ Tazobactam Sod 3.375 gm/Sodium Chloride 50 ml @ 100 mls/hr Q6HRS IV Last administered on 03/09/20at 12:09; Start 03/08/20 at 18:00 Acetaminophen/ Hydrocodone Bitart (Lortab 5/325) 1 tab PRN Q4HRS PRN PO MODERATE PAIN Last administered on 03/09/20at 13:03; Start 03/09/20 at 09:00 Lactobacillus Rhamnosus (Culturelle) 1 cap BID PO ; Start 03/09/20 at 21:00 Active Scripts Active Reported Metformin Hcl Er (Metformin Hcl) 500 Mg Tab.er.24h 500 Mg PO DAILYWBKFT Namenda (Memantine Hcl) 10 Mg Tablet 10 Mg PO BID Magnesium Oxide 400 Mg Tablet 400 Mg PO 1-2XD PRN Loperamide (Loperamide Hcl) 2 Mg Tablet 1 Tab PO Q4HRS 30 Days Lisinopril 2.5 Mg Tablet 1 Tab PO DAILY Atrovent Hfa (Ipratropium [place]) 12.9 Gm Hfa.aer.ad 2 Puff IH QID Hydrocodone-Apap 5-325 (Hydrocodone Bit/Acetaminophen) 1 Tab Tablet 1 Tab PO PRN Q6HRS PRN Breo Ellipta 100-25 Mcg Inh (Fluticasone/Vilanterol) 1 Each Aer.pow.ba 1 Puff IH DAILY Fenofibrate (Fenofibrate Nanocrystallized) 145 Mg Tablet 145 Mg PO DAILY Donepezil Hcl 10 Mg Tablet 1 Tab PO DAILY D3-50 (Cholecalciferol (Vitamin D3)) 50,000 Unit Capsule 50,000 Unit PO 1X Aggrenox 25 Mg-200 Mg Capsule (Aspirin/Dipyridamole) 1 Each Cpmp.12hr 1 Cap PO BID Proair Hfa Inhaler (Albuterol Sulfate) 8.5 Gm Hfa.aer.ad 2 Puff IH PRN Q4-6HRS PRN 21 Days Tylenol (Acetaminophen) 325 Mg Tablet 1-2 Tab PO QID Vitals/I & O Vital Sign - Last 24 Hours 03/08/20 03/08/20 03/08/20 03/08/20 15:13 16:06 19:00 20:00 Temp 98.4 98.4 Pulse 35 38 Resp 25 16 B/P (MAP) 133/47 (75) 125/49 (74) Pulse Ox 95 96 O2 Delivery Room Air Room Air Room Air Room Air 03/08/20 03/09/20 03/09/20 03/09/20 23:00 03:00 07:00 08:00 Temp 98.6 98.1 98.6 98.1 Pulse 35 35 41 Resp 25 22 21 B/P (MAP) 135/56 (82) 127/47 (73) 124/55 (78) Pulse Ox 92 92 94 O2 Delivery Room Air Room Air Room Air Room Air 03/09/20 03/09/20 12:00 13:03 Temp 98.3 98.3 Pulse 42 Resp 25 20 B/P (MAP) 131/58 (82) Pulse Ox 95 O2 Delivery Room Air Room Air Intake and Output 03/08/20 03/08/20 03/09/20 15:00 23:00 07:00 Intake Total 0 ml 0 ml Output Total 400 ml 200 ml Balance -400 ml 0 ml -200 ml Problem List Acute blood loss anemia- most likely secondary to PUD NSAID/aggrenox induced, medical therpay with PPI with covid morbidity, advance diet and reassess symptoms Justicifation of Admission Dx: Justifications for Admission: Justification of Admission Dx: N/A CHERIE GONZALEZ MD Mar 09, 2020 14:00
[2020-03-09 15:00] VITALS: BP 125/55
[2020-03-09 19:00] VITALS: BP 118/58
[2020-03-09] MEDS: LACTOBACILLUS RHAMNOSUS GG 1 CAPSULE. PO SCH (21:49)
[2020-03-09 23:00] VITALS: BP 127/47
[2020-03-10] MEDS: PIPERACILLIN/TAZOBACTAM 3.375 GM in IV NORMAL SALINE 50ML 50 ML IV SCH ×2 (01:20→05:47)
[2020-03-10 03:00] VITALS: BP 128/53
[2020-03-10] MEDS: PANTOPRAZOLE SODIUM IV DRIP 80 MG in IV NORMAL SALINE 100ML 100 ML IV SCH (04:23)
[2020-03-10 07:00] VITALS: BP 143/63
[2020-03-10 07:11] LABS: CALCIUM 7.3 mg/dL (8.5-10.1); CREATININE 1.3 mg/dL (0.7-1.3); GFR 53.3; POTASSIUM 3.7 mmol/L (3.5-5.1)
[2020-03-10] MEDS: HYDROcodone/APAP 5/325MG 1 TAB TABLET PO PRN ×4 (07:30→21:53)
[2020-03-10 08:01] LABS: HEMATOCRIT 26.3 % (39.0-53.0); HEMOGLOBIN 8.9 g/dL (13.0-17.5)
--- NOTE | 2020-03-10 08:39 | PN ---
DATE: 03/10/2020 SUBJECTIVE: The patient is resting, slightly propped up in bed, in no apparent distress. He is confused, continued to have back pain, but denied any other complaint. The nursing staff did not voice any concerns that has an uneventful night. In particular, he has no further episode of nausea or vomiting. No hematemesis or melena. Has a bowel movement that was brown. He was started on a clear liquid and advanced. He is tolerating now regular diet without any problem. He did not display any abnormal behaviors while here. PHYSICAL EXAMINATION: GENERAL: When I examined him, he looked pale, no jaundice, cyanosis or thyromegaly. No jugular venous distention. No limb edema. VITAL SIGNS: His heart rate was 38, blood pressure was 143/63, temperature 97.9, respiratory rate was 22 and oxygen saturation was 95% on room air. HEAD, EYES, EARS, NOSE AND THROAT: Showed normocephalic, atraumatic. NECK: Supple. HEART: Showed normal first and second heart sounds. No gallop, rub or murmur. CHEST: Clear to auscultation. No crepitation or rhonchi. ABDOMEN: Distended, soft, nontender. NEUROLOGIC: He is demented, but without any obvious lateralizing sign. All his cranial nerves are intact. He moves extremities spontaneously. LABORATORY DATA: His intake over the last 24 hours was incompletely recorded. As of this morning, his serum sodium was 139, potassium 3.7, chloride 107, bicarbonate 24, anion gap of 8, BUN 17, creatinine 1.3, estimated GFR was 53 mL per minute and glucose was 96 and calcium was 7.3. His H and H still pending at the time of this dictation. As of yesterday, it was 8.6 and 25.7. ASSESSMENT: 1. Acute blood loss anemia with hemoglobin and hematocrit dropped down to 6.4 and 18.6. He received 2 units of packed RBCs. As of yesterday, his H and H was 8.6 and 25.7. Today's labs are still pending. 2. Probably blood from peptic ulcer disease induced by Aggrenox. 3. Acute kidney injury, improved. His BUN and creatinine are down to 17 and 1.3. 4. Severe protein-calorie malnutrition with serum albumin is only 2.6 mg/dL. 5. Aspiration pneumonia. 6. Sepsis for which he was on Zosyn and Zyvox. 7. Other medical problems include: A. dementia of Alzheimer type. B. Hypertension. C. Type 2 diabetes mellitus. D. Hyperlipidemia. E. Chronic obstructive pulmonary disease. F. Chronic back pain. G. Chronic constipation. PLAN: His blood cultures done at [facility] are so far negative. My plan is to discontinue his linezolid, discontinue his PPN and switch him to probably oral Augmentin. I will consult the psychologist social to discharge him back to his original halfway facility as he did not display any behavior that qualified him to go back to [facility]. ONEAL MENA MD DR: LYUDMILA/emily JOB#: [id number] / [id number]
[2020-03-10] MEDS: LACTOBACILLUS RHAMNOSUS GG 1 CAPSULE. PO SCH ×2 (09:00→20:43)
[2020-03-10] MEDS ORDERED: AMOXICILLIN/K CLAV 500/125MG TABLET. PO SCH (09:00)
--- NOTE | 2020-03-10 10:32 | NUR ---
SS following up with discharge planning. SS reviewed pt chart and discussed with pt RN and Dr. Gonzalez. Pt came from [facility], . Prior to that pt was LTC pt at [facility], ; fax [phone]. Discharge orders received for return to [facility] or LTC facility. SS contacted Silvana Mendiola at [facility] and was notified that they will not take pt back COVID positive. SS left phone message for Zhane at [facility]. SS contacted [facility] and spoke with Veronika. SS was notified that pt was at [facility] for ten days and prior to that tested negative at facility. [facility] reported that did not have COVID prior to be transferred to [facility] and reported that they would like pt to have one negative test prior to returning. SS phoned and faxed clinical and discharge orders to Veronika at [facility]. Veronika reported that she would review pt's clinical and orders and would contact SS to further discuss.
[2020-03-10 11:00] VITALS: BP 135/66
--- NOTE | 2020-03-10 12:51 | PDOC ---
Objective: Objective: D/w nurse - no bleeding. Stooling and eating. Possible DC soon. Vital Signs: Vital Signs Date Time Temp Pulse Resp B/P (MAP) Pulse Ox O2 Delivery O2 Flow Rate FiO2 03/10/20 11:38 16 94 Nasal Cannula 03/10/20 11:00 98.0 42 135/66 (89) 98.0 Labs: Laboratory Tests Test 03/10/20 06:15 Hemoglobin 8.9 g/dL Hematocrit 26.3 % Sodium Level 139 mmol/L Potassium Level 3.7 mmol/L Chloride Level 107 mmol/L Carbon Dioxide Level 24 mmol/L Anion Gap 8 Blood Urea Nitrogen 17 mg/dL Creatinine 1.3 mg/dL Estimated GFR (Cockcroft-Gault) 53.3 Glucose Level 96 mg/dL Calcium Level 7.3 mg/dL PE: GEN:in COVID isolation in ICU LUNGS: room air HEART: bradycardic per chart ABD: non-distended NEURO/PSYCH: awake, watching tv A/P: Hematemesis/melena - resolved Anemia - stable/improved w/ transfusions Dementia, +COVID -- Stable, no further bleeding. DC per primary. PO PPI. Justicifation of Admission Dx: Justifications for Admission: Justification of Admission Dx: N/A BEAN THOMPSON Mar 10, 2020 12:51
[2020-03-10] MEDS: PANTOPRAZOLE 40 MG TABLET.DR. PO SCH (13:00)
--- NOTE | 2020-03-10 14:04 | NUR ---
SS following up with discharge planning. [facility], ; fax [phone], reporting that they will not take pt back COVID19 positive and want one negative prior to returning to LTC facility. [facility] also stating that pt still needs [facility]. Per RN, pt is not having behavioral symptoms. Psych consult being placed to assess. Pt's RN, Pritesh, contacting Veronika at [facility] to discuss. SS will continue to follow for discharge planning.
[2020-03-10 15:00] VITALS: BP 129/62
[2020-03-10 19:00] VITALS: BP 159/76
[2020-03-10] MEDS: AMOXICILLIN/K CLAV 500/125MG TABLET. PO SCH (20:43)
[2020-03-10 23:00] VITALS: BP 152/65
[2020-03-11 03:00] VITALS: BP 149/69
[2020-03-11] MEDS: HYDROcodone/APAP 5/325MG 1 TAB TABLET PO PRN ×5 (04:57→22:18)
[2020-03-11 07:15] VITALS: BP 145/69
[2020-03-11] MEDS: LACTOBACILLUS RHAMNOSUS GG 1 CAPSULE. PO SCH ×2 (09:00→21:13)
[2020-03-11] MEDS: PANTOPRAZOLE 40 MG TABLET.DR. PO SCH (09:00)
[2020-03-11] MEDS: AMOXICILLIN/K CLAV 500/125MG TABLET. PO SCH ×2 (09:00→21:13)
--- NOTE | 2020-03-11 10:27 | PN ---
DATE: 03/11/2020 SUBJECTIVE: The patient is resting, slightly propped up in bed, in no apparent distress, awake, alert. Denied any complaint other than his chronic low back pain. The nursing staff did not voice any concern. Particularly, there has no further episodes of nausea, vomiting, hematemesis, melena, or hematochezia. PHYSICAL EXAMINATION: GENERAL: When I examined him this morning, he looked pale, but no jaundice, cyanosis or thyromegaly. No jugular venous distention. No limb edema. VITAL SIGNS: His heart rate is 45, blood pressure was 145/69, temperature was 98.2, respiratory rate was 16, and oxygen saturation was 95%. HEENT: Examination of the head, eyes, ears, nose and throat showed normocephalic, atraumatic. NECK: Supple. HEART: Showed normal first and second heart sounds. No gallop, rub or murmur. CHEST: Clear to auscultation. No crepitation or rhonchi. ABDOMEN: Distended, soft, nontender. NEUROLOGIC: He is demented, but without any obvious lateralizing sign. His intake over the last 24 hours was incompletely recorded. LABORATORY DATA: As of yesterday, his serum sodium was 139, potassium 3.7, chloride 107, bicarbonate 24, anion gap of 8, BUN 17, creatinine 1.3, estimated GFR was 53 mL per minute. His glucose was 96, calcium was 7.3. His hemoglobin was 8.9, hematocrit 26.3. ASSESSMENT: 1. Acute blood loss anemia with hemoglobin and hematocrit that dropped to 6.4 and 18.6 for which he received 2 units of packed RBCs. As of yesterday, his H and H was 8.9 and 26.3. 2. Probably Aggrenox induced peptic ulcer disease. 3. Acute kidney injury, improved. His BUN and creatinine are down to 17 and 1.3. 4. Severe protein-calorie malnutrition, serum albumin is only 2.6 g/dL. 5. Aspiration pneumonia. 6. Sepsis for which he was on Zyvox and Zosyn. 7. Other medical problems include: A. Dementia of Alzheimer type. B. Hypertension. C. Type 2 diabetes mellitus. D. Hyperlipidemia. E. Chronic obstructive pulmonary disease. F. Chronic back pain. G. Chronic constipation. PLAN: The plan is to continue with all his current medication. I will repeat his lab work and I have consulted the case management for placement and apparently the intermediate facility would not take him because he is positive. He did not display any behavioral disturbances that warrants [facility]. ONEAL MENA MD DR: LYUDMILA/emily JOB#: [id number] / [id number]
--- NOTE | 2020-03-11 11:18 | PDOC ---
Objective: Objective: Reviewed chart - discharge plans unclear since remains COVID+ No bleeding per staff. Vital Signs: Vital Signs Date Time Temp Pulse Resp B/P (MAP) Pulse Ox O2 Delivery O2 Flow Rate FiO2 03/11/20 10:00 20 98 Room Air 03/11/20 07:15 98.2 45 145/69 (94) 98.2 PE: GEN: in COVID isolation LUNGS: room air HEART: bradycardic - stable ABD: non-distended NEURO/PSYCH: confused A/P: Hematemesis/melena - resolved, on PPI Anemia - stable Dementia COVID-19 + -- Continue same per GI. Await DC. Justicifation of Admission Dx: Justifications for Admission: Justification of Admission Dx: N/A BEAN THOMPSON Mar 11, 2020 11:18
[2020-03-11 11:30] VITALS: BP 145/76
[2020-03-11] MEDS ORDERED: LOPERAMIDE 2 MG CAPSULE PO ONE (13:00)
--- NOTE | 2020-03-11 13:57 | PDOC2 ---
NAYA BERG GAS PIPE LAYER 03/11/20 1356: CARDIAC CONSULT DATE OF CONSULT Date of Consult DATE: 03/11/20 TIME: 13:49 REASON FOR CONSULT Reason for Consult: Sinus bradycardia REFERRING PHYSICIAN Referring Physician: Dr. Gonzalez SOURCE Source: Chart review, Patient HISTORY OF PRESENT ILLNESS HISTORY OF PRESENT ILLNESS This is a 79 yo male who presented from [facility] due to hematemesis. Was at [facility]. Has been bradycardic, which prompted this consult. No reports of dizziness, diaphoresis, or syncopal episodes. Was COVID + at [facility]. PAST MEDICAL HISTORY Cardiovascular: HTN, Hyperlipidemia Pulmonary: COPD CENTRAL NERVOUS SYSTEM: Dementia Musculoskeletal: Osteoarthritis PAST SURGICAL HISTORY Past Surgical History: No pertinent history FAMILY HISTORY Family History: Hypertension SOCIAL HISTORY Smoke: No ALCOHOL: none Drugs: None Lives: with Family CURRENT MEDICATIONS CURRENT MEDICATIONS Current Medications Medications (Trade) Dose Ordered Sig/Frieda Route PRN Reason Start Time Stop Time Status Last Admin Dose Admin Amoxicillin/ Clavulanate Potassium (Augmentin 500/ 125mg) 1 tab BID PO 03/10/20 21:00 03/11/20 09:00 Loperamide HCl (Imodium) 4 mg 1X ONCE PO 03/11/20 13:00 03/11/20 13:11 DC 03/11/20 13:30 ALLERGIES ALLERGIES: Coded Allergies: No Known Drug Allergies (Unverified , 03/07/20) ROS Review of System unobtainable PHYSICAL EXAM PHYSICAL EXAM visual exam conducted due to COVID. D/w RN General: Alert, Cooperative, No acute distress HEENT: Atraumatic Lungs: Other (RA) Heart: Other (sinus mark with 2nd degree type 1 AVB) Extremities: No edema Psych/Mental Status: Mood NL MUSCULOSKELETAL: Osteoarthritic changes both hands VITALS/I&O VITALS/I&O: Vital Signs Date Time Temp Pulse Resp B/P (MAP) Pulse Ox O2 Delivery O2 Flow Rate FiO2 03/11/20 11:30 98.2 35 18 145/76 (99) 95 Room Air 98.2 I & O 03/10/20 03/10/20 03/11/20 15:00 23:00 07:00 Intake Total 200 ml Output Total 750 ml 650 ml 500 ml Balance -750 ml -450 ml -500 ml ASSESSMENT/PLAN ASSESSMENT/PLAN 1. Hematemesis, anemia, GIB; s/p 4 untis PRBCs 2. COVID PNA; on RA 3. Bradycardia; tele noted with Mobitz type 1. Lowest 37. Asymptomatic. No significant pauses. 4. Mild trop elevation; trop 0.274. most probably type II, demand ischemia in setting of above. 5. Hypertension; controlled 6. Hyperlipidemia 7. Diabetes, II 8. SANA; improved 9. Dementia Recommendation Aggrenox on hold with anemia, GIB Avoid AV debra blocking agents Monitor tele Could use Dopamine if patient becomes symptomatic No Aricept. Supportive care DONNELL NAYAK MD 03/12/20 1213: CARDIAC CONSULT ASSESSMENT/PLAN ASSESSMENT/PLAN Late entry for 03/11/2020 Pt. seen and examined. 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 Supportive care. No indication for pacemaker. NAYA BERG APRN Mar 11, 2020 13:56 DONNELL NAYAK MD Mar 12, 2020 12:13
--- NOTE | 2020-03-11 14:42 | NUR ---
SW following. Spoke with RN and reviewed chart. Coordinated care with Dr. Gonzalez. Pt resides in LTC at [facility], , (fax). Pt transferred to [facility] from [facility] and is now ready to return back to LT. RONALDO spoke with the school business administrator at [facility] and she is refusing to take pt back as she wants pt to return to [facility] for further mental health treatment and to be COVID negative. RONALDO explained that pt is calm and cooperative per RN today and chart review and that pt is on oral abx for prior sepsis and not meeting criteria for geripsych treatment at this time. RONALDO also spoke with and explained the same information to pt's guardian Devorah, . RONALDO spoke with SW at [facility] and they can't take pt back as he does not meet criteria and the Health Department has told them they can't accept patients at this time per COVID. RONALDO requested that [facility] SW call and explain to pt's guardian that they can't take patients per mandate from the Health Department. RONALDO contacted the [facility] Ombudsman office at [phone] and [facility] to request an advocate be assigned to this case. RN ordered psychiatric evaluation from Dr. Mendoza and another COVID test today per approval from Dr. Gonzalez. RONALDO to continue following.
[2020-03-11 15:15] VITALS: BP 136/58
[2020-03-11] MEDS: LOPERAMIDE 2 MG CAPSULE PO PRN (16:54)
--- NOTE | 2020-03-11 18:54 | NUR ---
PATIENT IS ELVIRA / 1ST DE[address]REE AV BLOCK. DR. NAYAK IS AWARE THAT THE PATIENT IS ELVIRA BETWEEN 36- 51. NO INTERVENTIONS IS NECESSARY AT THIS TIME. PLEASE NOTIFY PHYSICIAN WHEN PATIENT IS IN THE 20'S. A SECOND COVID TEST WAS ORDERED FOR PATIENT TO BE PLACED BACK AT [facility] ACCORDING TO SOCIAL WORK. NICOL DE LA O ORDERED TO COMPLY WITH [facility] REQUEST FOR FURTHER PSYCHOLOGICAL EVALUATION OF THE PATIENT BEFORE PLACEMENT AT [facility]. DR RODRÍGUEZ WILL RESPOND TO THE HOSPITAL THIS EVENING. ALL CONSULTS NOTIFIED.
[2020-03-11 19:15] VITALS: BP 161/89
--- NOTE | 2020-03-11 23:48 | PDOC1 ---
History & Psych Evaluation Date of Admission: Date of Admission DATE: 03/11/20 TIME: 19:00 Source: Source: Caregiver, Chart review, Patient Identification: Identification He is a 79-year-old gentleman admitted with altered mental status and hematemesis with anemia Chief Complaint: Chief Complaint Altered mental status History of Present Illness: HPI: Is a 79-year-old gentleman seen for initial psychiatric assessment. Reportedly admitted with altered mental status. He is covert positive. He appears confused and distracted. Continues to ruminate that he wanted to go home. Appe ars paranoid, stating he lost his money and probably stolen by staff at the facility and here in hospital. Repeating sentences and focused on losing money and wanting to go home which were out of context to this situation. Aside from that, endorsing mild depression or anxiety however he does not appears to be concerned about his stated anxiety or depression. Denies suicidal or homicidal thoughts. Denies auditory or visual hallucinations. No evidence of feliz or hypomania. History of Alzheimer disease, baseline status is not known. No evidence of psychosis Past Psychiatric History: Significant for dementia of Alzheimer type. Sent to [facility] behavioral health unit by his family. Past Medical History: Hypertension, vitamin D deficiency, type 2 diabetes mellitus, hyperlipidemia, chronic obstructive pulmonary disease, chronic low back pain, atherosclerotic coronary artery disease, seasonal allergie Family History: Patient is unaware of psychiatric family history. Denies history of suicide in the family. Social History: Social History: History of Alzheimer dementia, transferred to [facility] by family. Denies history of excessive alcohol abuse or illicit substance use. No legal issues reported Current Medications: Current Medications Current Medications Medications (Trade) Dose Ordered Sig/[facility] Start Time Stop Time Status Last Admin Dose Admin Acetaminophen/ Hydrocodone Bitart (Lortab 5/325) 1 tab PRN Q4HRS PRN 03/09/20 09:00 03/11/20 22:18 1 TAB Amino Acids/ Glycerin/ Electrolytes 1,000 ml @ 80 mls/hr [id number] 03/08/20 09:00 03/10/20 08:23 DC 03/09/20 07:53 80 MLS/HR Amoxicillin/ Clavulanate Potassium (Augmentin 500/ 125mg) 1 tab BID 03/10/20 21:00 03/11/20 21:13 1 TAB Fentanyl Citrate (Fentanyl 2ml Vial) 50 mcg PRN Q2HR PRN 03/07/20 02:45 03/08/20 09:43 50 MCG Lactobacillus Rhamnosus (Culturelle) 1 cap BID 03/09/20 21:00 03/11/20 21:13 1 CAP Linezolid/Dextrose 300 ml @ 300 mls/hr Q12HR 03/07/20 05:00 03/10/20 08:23 DC 03/09/20 21:49 300 MLS/HR Loperamide HCl (Imodium) 2 mg PRN Q15MIN PRN 03/11/20 13:00 03/11/20 16:54 2 MG Norepinephrine Bitartrate 8 mg/ Dextrose 258 ml @ 22.446 mls/ hr CONT PRN 03/07/20 02:45 Ondansetron HCl (Zofran) 4 mg PRN Q6HRS PRN 03/07/20 02:45 03/09/20 12:09 4 MG Pantoprazole Sodium (Protonix) 40 mg DAILYAC 03/10/20 13:00 03/11/20 09:00 40 MG Pantoprazole Sodium 80 mg/ Sodium Chloride 100 ml @ 10 mls/hr Q10H 03/07/20 03:00 03/10/20 02:59 DC 03/10/20 04:23 10 MLS/HR Piperacillin Sod/ Tazobactam Sod (Zosyn Per Pharmacy) 1 each PRN DAILY PRN 03/07/20 02:45 03/10/20 08:25 DC Piperacillin Sod/ Tazobactam Sod 2.25 gm/Sodium Chloride 50 ml @ 100 mls/hr Q6HRS 03/07/20 06:00 03/08/20 14:44 DC 03/08/20 13:15 100 MLS/HR Piperacillin Sod/ Tazobactam Sod 3.375 gm/Sodium Chloride 50 ml @ 100 mls/hr Q6HRS 03/08/20 18:00 03/10/20 08:23 DC 03/10/20 05:47 100 MLS/HR Sodium Chloride 1,000 ml @ 30 mls/hr 1X ONCE 03/07/20 03:00 03/08/20 12:19 DC 03/07/20 03:00 30 MLS/HR Allergies: Allergies: Coded Allergies: No Known Drug Allergies (Unverified , 03/07/20) Mental Status Examination: Mental Status Examination Elderly gentleman appears his stated age, fairly groomed, fairly nourished Resistant to psychological exploration due to limited insight Disoriented Thought processes concrete Denies auditory or visual hallucinations. He is paranoid Denies suicidal or homicidal thoughts Mood is dysphoric Affect is dysthymic Insight is limited Judgment is limited Impulse control is fair. Attention span and concentration poor Recent memory is impaired ROS: 14 point review of system is otherwise negative except for stated in H&P. Physical Exam: Refer to Physician's note. ATTENDANT SALES: No focal deficit MSK: No EPS, TDK, or abnormal involuntary movements Vitals: Vitals Vital Signs Date Time Temp Pulse Resp B/P (MAP) Pulse Ox O2 Delivery O2 Flow Rate FiO2 03/11/20 23:44 48 24 03/11/20 23:18 96 Room Air 03/11/20 19:15 97.2 161/89 (113) 97.2 Labs: Labs Laboratory Tests Test 03/10/20 06:15 Hemoglobin 8.9 g/dL (13.0-17.5) Hematocrit 26.3 % (39.0-53.0) Sodium Level 139 mmol/L (136-145) Potassium Level 3.7 mmol/L (3.5-5.1) Chloride Level 107 mmol/L (98-107) Carbon Dioxide Level 24 mmol/L (21-32) Anion Gap 8 (6-14) Blood Urea Nitrogen 17 mg/dL (8-26) Creatinine 1.3 mg/dL (0.7-1.3) Estimated GFR (Cockcroft-Gault) 53.3 Glucose Level 96 mg/dL (70-99) Calcium Level 7.3 mg/dL (8.5-10.1) Diagnosis: Diagnosis: 1. Acute delirium, likely multifactorial, hypoactive and hyperactive mixed 2. Neurocognitive disorder, major, Alzheimer type Assessment: He is a elderly gentleman with history of Alzheimer disease admitted with confusion and GI bleed. Apparently, multiple medical health problems and underlying neurocognitive disorder are the major precipitating factor for delirium. Due to his neurodegenerative brain process he is at risk of being delirious. Denying suicidal or homicidal thoughts. Perseverative, concrete, and ruminating. It is reasonable to add Zyprexa temporarily to control behaviors and further resolution of delirium. Plan: 1. Start Zyprexa 5 mg at bedtime for 2 resolution of delirium and aggressive behavior. 2. Risks, benefits, alternatives of the treatment are discussed. He is in agreement with plan and voiced understanding. 3. Adverse drug reaction of the medications including excessive sedation, risk of tardive dyskinesia are discussed. 4. Applied delirium protocol. Avoid sundowning. 5. Avoid sedatives and hypnotics. 7. Monitor for safety, confusion, symptomatology and adverse drug reaction. Thank you for involving inpatient care for KARLA RODRÍGUEZ MD Mar 11, 2020 23:48
[2020-03-12 03:15] VITALS: BP 146/70
[2020-03-12 03:39] LABS: HEMATOCRIT 30.8 % (39.0-53.0); HEMOGLOBIN 10.3 g/dL (13.0-17.5); RED BLOOD COUNT 3.41 x10^6/uL (4.30-5.70); RED CELL DISTRIBUTION WIDTH 16.2 % (11.5-14.5); WHITE BLOOD COUNT 4.4 x10^3/uL (4.0-11.0)
[2020-03-12 04:04] LABS: ALBUMIN 2.7 g/dL (3.4-5.0); ALBUMIN/GLOBULIN RATIO 0.8 (1.0-1.7); CALCIUM 7.9 mg/dL (8.5-10.1); CREATININE 1.2 mg/dL (0.7-1.3); GFR 58.4; POTASSIUM 3.4 mmol/L (3.5-5.1); TOTAL BILIRUBIN 0.3 mg/dL (0.2-1.0)
[2020-03-12 07:10] VITALS: BP 126/101
--- NOTE | 2020-03-12 10:01 | PDOC ---
Objective: Objective: No bleeding per nurse. call center rn light a lot yesterday - repeatedly said he had to shave a bowel movement but did not stool excessively. Vital Signs: Vital Signs Date Time Temp Pulse Resp B/P (MAP) Pulse Ox O2 Delivery O2 Flow Rate FiO2 03/12/20 07:10 98.2 40 19 126/101 (109) 91 Room Air 98.2 Labs: Laboratory Tests Test 03/12/20 02:40 White Blood Count 4.4 x10^3/uL Red Blood Count 3.41 x10^6/uL Hemoglobin 10.3 g/dL Hematocrit 30.8 % Mean Corpuscular Volume 90 fL Mean Corpuscular Hemoglobin 30 pg Mean Corpuscular Hemoglobin Concent 33 g/dL Red Cell Distribution Width 16.2 % Platelet Count 174 x10^3/uL Sodium Level 142 mmol/L Potassium Level 3.4 mmol/L Chloride Level 107 mmol/L Carbon Dioxide Level 25 mmol/L Anion Gap 10 Blood Urea Nitrogen 8 mg/dL Creatinine 1.2 mg/dL Estimated GFR (Cockcroft-Gault) 58.4 BUN/Creatinine Ratio 7 Glucose Level 96 mg/dL Calcium Level 7.9 mg/dL Total Bilirubin 0.3 mg/dL Aspartate Amino Transf (AST/SGOT) 18 U/L Alanine Aminotransferase (ALT/SGPT) 14 U/L Alkaline Phosphatase 44 U/L Total Protein 6.0 g/dL Albumin 2.7 g/dL Albumin/Globulin Ratio 0.8 PE: GEN: NAD LUNGS: room air HEART: bradycardic ABD: non-distended NEURO/PSYCH: confused A/P: Hematemesis/melena - resolved Anemia - improved Dementia, COVID-19 + -- Awaiting DC. Continue PPI. Justicifation of Admission Dx: Justifications for Admission: Justification of Admission Dx: N/A BEAN THOMPSON Mar 12, 2020 10:00
[2020-03-12] MEDS: LACTOBACILLUS RHAMNOSUS GG 1 CAPSULE. PO SCH ×2 (10:35→19:48)
[2020-03-12] MEDS: AMOXICILLIN/K CLAV 500/125MG TABLET. PO SCH ×2 (10:35→19:48)
[2020-03-12] MEDS: OLANZapine 5 MG TABLET PO SCH (10:35)
[2020-03-12] MEDS: PANTOPRAZOLE 40 MG TABLET.DR. PO SCH (10:37)
[2020-03-12 11:10] VITALS: BP 142/74
[2020-03-12] MEDS ORDERED: ALBUTEROL SULFATE 8GM INHALER. INH PRN (11:45)
[2020-03-12] MEDS ORDERED: POTASSIUM CHLORIDE 20 MEQ TABLET.ER. PO ONE (11:45)
--- NOTE | 2020-03-12 14:02 | PN ---
DATE: 03/12/2020 SUBJECTIVE: The patient is resting, slightly propped up in bed, in no apparent respiratory distress. He is demented, continued to complain of low back pain. Nursing staff states he has been also wheezy, but has had no further episode of diarrhea. We did send stool for C. diff yesterday and treated him with loperamide. PHYSICAL EXAMINATION: GENERAL: When I examined him today, he looked pale, no jaundice, cyanosis or thyromegaly. No jugular venous distention. No limb edema. VITAL SIGNS: His heart rate was 57, blood pressure 142/74, temperature 96.5, respiratory rate was 19, and oxygen saturation was 96%. HEAD, EYES, EARS, NOSE AND THROAT: Showed normocephalic, atraumatic. NECK: Supple. HEART: Showed normal first and second heart sounds. No gallop, rub or murmur. CHEST: Clear to auscultation. No crepitation or rhonchi. ABDOMEN: Distended, soft, nontender. NEUROLOGIC: He is demented, but without any obvious lateralizing sign. His intake over the last 24 hours was 200 and output was 1900. LABORATORY DATA: As of this morning, his white cell count was 4400, hemoglobin 10, hematocrit 30, MCV 90 and platelet count of 174,000. His chemistry showed a serum sodium 142, potassium 3.4, chloride 107, bicarbonate 25, anion gap of 10, BUN 8, creatinine 1.2, and estimated GFR was 58 mL per minute. Glucose 96 and calcium was 7.9. Total bilirubin, AST, ALT, and alkaline phosphatase were normal. Total protein 6, albumin was 2.7. ASSESSMENT: 1. Acute blood loss anemia with hemoglobin and hematocrit that dropped down to 6.4 and 18, for which he received 2 units of packed RBCs. As of this morning, his hemoglobin was 10 and hematocrit 30. 2. Aggrenox-induced peptic ulcer disease. 3. Acute kidney injury, resolved. His BUN and creatinine came down to 8 and 1.2. 4. Severe protein-calorie malnutrition. Serum albumin is only 2.6 g/dL. 5. Aspiration pneumonia. 6. Sepsis for which he was on Zyvox and Zosyn. 7. Other medical problems include: A. Dementia of Alzheimer type. B. Hypertension. C. Type 2 diabetes mellitus. D. Hyperlipidemia. E. Chronic obstructive pulmonary disease. F. Chronic back pain. G. Constipation. H. The patient is known to be positive for COVID-19, currently on isolation. ONEAL MENA MD DR: LYUDMILA/emily JOB#: [id number] / [id number]
[2020-03-12 15:15] VITALS: BP 133/61
--- NOTE | 2020-03-12 17:22 | NUR ---
SW following. SW reviewed chart and spoke with RN. RONALDO phoned and faxed psychiatric evaluation and nursing notes to show pt is calm and not combative to the nursing student at [facility], the guardian Devorah, and the [facility] Aaronskylar Naik ([phone]). [facility] is now requesting 2 negative COVID screens and the branch office administrator is talking with her corporate office about accepting pt back. RONALDO notified train operations supervisor Migue Mcgee of the status of this case. RONALDO to continue following.
[2020-03-12 19:25] VITALS: BP 174/95
[2020-03-12] MEDS: LOPERAMIDE 2 MG CAPSULE PO PRN (19:48)
[2020-03-12 23:23] VITALS: BP 149/67
[2020-03-13 03:59] VITALS: BP 134/61
[2020-03-13 07:20] VITALS: BP 139/64
[2020-03-13] MEDS: LACTOBACILLUS RHAMNOSUS GG 1 CAPSULE. PO SCH ×2 (08:27→21:35)
[2020-03-13] MEDS: OLANZapine 5 MG TABLET PO SCH (08:27)
[2020-03-13] MEDS: AMOXICILLIN/K CLAV 500/125MG TABLET. PO SCH ×2 (08:27→21:35)
[2020-03-13] MEDS: PANTOPRAZOLE 40 MG TABLET.DR. PO SCH (08:27)
[2020-03-13] MEDS: HYDROcodone/APAP 5/325MG 1 TAB TABLET PO PRN ×3 (08:53→18:29)
--- NOTE | 2020-03-13 10:57 | PN ---
DATE: 03/13/2020 SUBJECTIVE: The patient is resting, slightly propped up in bed, no apparent respiratory distress. Nursing staff did not voice any concerns. He is doing well, hemodynamically stable. His H and H have been stable. PHYSICAL EXAMINATION: GENERAL: When I examined him, he looked pale, but no jaundice, cyanosis or thyromegaly. No jugular venous distention. No limb edema. VITAL SIGNS: His heart rate was 65, blood pressure was 139/64, temperature 97.9, respiratory rate was 21 and oxygen saturation was 96% on room air. HEENT: Showed normocephalic, atraumatic. NECK: Supple. HEART: Showed normal first and second heart sounds. No gallop, rub or murmur. CHEST: Clear to auscultation. No crepitation or rhonchi. ABDOMEN: Distended, soft, nontender. NEUROLOGIC: He was demented, but without any obvious lateralizing sign. His intake over the last 24 hours was 1100, output was 600. His stool for C. diff was negative and he is obviously positive for coronavirus by PCR. LABORATORY DATA: As of yesterday, his BUN was 8, creatinine 1.2 with normal electrolytes and liver enzymes. His hemoglobin was 10, hematocrit 30 with normal white cell count and platelets. ASSESSMENT: 1. Acute blood loss anemia with hemoglobin and hematocrit that dropped down to 6.4 and 18, for which he received 2 units of packed RBCs. As of yesterday, his hemoglobin was 10, hematocrit 30. 2. Aggrenox-induced peptic ulcer disease. 3. Acute kidney injury, resolved. His BUN and creatinine are down to 8 and 1.2. 4. Severe protein-calorie malnutrition. Serum albumin is only 2.6 g/dL. 5. Aspiration pneumonia. 6. Sepsis, for which he was on Zyvox and Zosyn. 7. Other medical problems include: A. Dementia of Alzheimer's type. B. Hypertension. C. Type 2 diabetes mellitus. D. Hyperlipidemia. E. Chronic obstructive pulmonary disease. F. Chronic back pain. G. Constipation. H. The patient is known to be positive for COVID-19, currently on isolation. ONEAL MNEA MD DR: LYUDMILA/emily JOB#: [id number] / [id number]
[2020-03-13 11:05] LABS: CALCIUM 8.3 mg/dL (8.5-10.1); CREATININE 1.3 mg/dL (0.7-1.3); GFR 53.3; POTASSIUM 3.7 mmol/L (3.5-5.1)
--- NOTE | 2020-03-13 11:18 | PDOC ---
Objective: Objective: D/w nurse - possible DC today, no bleeding - got Imodium yesterday and now wants to poop more - gets up to commode and passes gas. Vital Signs: Vital Signs Date Time Temp Pulse Resp B/P (MAP) Pulse Ox O2 Delivery O2 Flow Rate FiO2 03/13/20 09:53 18 Room Air 03/13/20 07:20 97.9 65 139/64 (89) 96 97.9 Labs: Laboratory Tests Test 03/13/20 10:10 Sodium Level 144 mmol/L Potassium Level 3.7 mmol/L Chloride Level 109 mmol/L Carbon Dioxide Level 24 mmol/L Anion Gap 11 Blood Urea Nitrogen 7 mg/dL Creatinine 1.3 mg/dL Estimated GFR (Cockcroft-Gault) 53.3 Glucose Level 117 mg/dL Calcium Level 8.3 mg/dL PE: GEN: in COVID isolation LUNGS: CTAB HEART: RRR ABD: non-tender NEURO/PSYCH: confused A/P: Hematemesis/melena - resolved Anemia - improved Dementia, COVID-19 + -- DC per primary on PPI. Justicifation of Admission Dx: Justifications for Admission: Justification of Admission Dx: N/A BEAN THOMPSON Mar 13, 2020 11:18
[2020-03-13 11:21] VITALS: BP 137/62
--- NOTE | 2020-03-13 14:37 | PDOC ---
F/U PHYSCH PROG NOTE Subjective: Gentleman is seen for routine follow-up. Information is obtained from nursing staff. No major emotional or behavioral breakdown reported. He has severe hard of hearing, difficult at times for him to comprehend. Confusion could be as a part of delirium or hard of hearing that he can not comprehend. During frequent redirection and prompts. However, overall he is trying to communicate better than previous days. Ruminating less than previous days about discharge. He does not appear paranoid that people are stealing his money at hospital or at placement. Denies suicidal or homicidal thoughts. Denies auditory or visual mallory llucinations. Tolerating medications. No evidence of feliz or hypomania. Objective: 14 point review of system is otherwise negative except for stated in subjective history Vital Signs: Vital Signs Date Time Temp Pulse Resp B/P (MAP) Pulse Ox O2 Delivery O2 Flow Rate FiO2 03/13/20 13:42 17 Room Air 03/13/20 11:21 98.1 50 137/62 (87) 93 98.1 Labs: Laboratory Tests Test 03/13/20 10:10 Sodium Level 144 mmol/L (136-145) Potassium Level 3.7 mmol/L (3.5-5.1) Chloride Level 109 mmol/L (98-107) H Carbon Dioxide Level 24 mmol/L (21-32) Anion Gap 11 (6-14) Blood Urea Nitrogen 7 mg/dL (8-26) L Creatinine 1.3 mg/dL (0.7-1.3) Estimated GFR (Cockcroft-Gault) 53.3 Glucose Level 117 mg/dL (70-99) H Calcium Level 8.3 mg/dL (8.5-10.1) L Laboratory Tests 03/13/20 10:10 Medications: Current Medications Medications (Trade) Dose Ordered Sig/Frieda Start Time Stop Time Status Last Admin Dose Admin Acetaminophen/ Hydrocodone Bitart (Lortab 5/325) 1 tab PRN Q4HRS PRN 03/09/20 09:00 03/13/20 13:42 1 TAB Albuterol Sulfate (Ventolin Hfa) 1 puff PRN Q4HRS PRN 03/12/20 11:45 Amino Acids/ Glycerin/ Electrolytes 1,000 ml @ 80 mls/hr [id number] 03/08/20 09:00 03/10/20 08:23 DC 03/09/20 07:53 80 MLS/HR Amoxicillin/ Clavulanate Potassium (Augmentin 500/ 125mg) 1 tab BID 03/10/20 21:00 03/13/20 08:27 1 TAB Fentanyl Citrate (Fentanyl 2ml Vial) 50 mcg PRN Q2HR PRN 03/07/20 02:45 03/08/20 09:43 50 MCG Lactobacillus Rhamnosus (Culturelle) 1 cap BID 03/09/20 21:00 03/13/20 08:27 1 CAP Linezolid/Dextrose 300 ml @ 300 mls/hr Q12HR 03/07/20 05:00 03/10/20 08:23 DC 03/09/20 21:49 300 MLS/HR Loperamide HCl (Imodium) 2 mg PRN Q15MIN PRN 03/11/20 13:00 03/12/20 19:48 2 MG Norepinephrine Bitartrate 8 mg/ Dextrose 258 ml @ 22.446 mls/ hr CONT PRN 03/07/20 02:45 03/13/20 14:11 DC Olanzapine (ZyPREXA) 5 mg DAILY 03/12/20 09:00 03/13/20 08:27 5 MG Ondansetron HCl (Zofran) 4 mg PRN Q6HRS PRN 03/07/20 02:45 03/09/20 12:09 4 MG Pantoprazole Sodium (Protonix) 40 mg DAILYAC 03/10/20 13:00 03/13/20 08:27 40 MG Pantoprazole Sodium 80 mg/ Sodium Chloride 100 ml @ 10 mls/hr Q10H 03/07/20 03:00 03/10/20 02:59 DC 03/10/20 04:23 10 MLS/HR Piperacillin Sod/ Tazobactam Sod (Zosyn Per Pharmacy) 1 each PRN DAILY PRN 03/07/20 02:45 03/10/20 08:25 DC Piperacillin Sod/ Tazobactam Sod 2.25 gm/Sodium Chloride 50 ml @ 100 mls/hr Q6HRS 03/07/20 06:00 03/08/20 14:44 DC 03/08/20 13:15 100 MLS/HR Piperacillin Sod/ Tazobactam Sod 3.375 gm/Sodium Chloride 50 ml @ 100 mls/hr Q6HRS 03/08/20 18:00 03/10/20 08:23 DC 03/10/20 05:47 100 MLS/HR Potassium Chloride (Klor-Con) 40 meq 1X ONCE 03/12/20 11:45 03/12/20 11:46 DC 03/12/20 12:54 40 MEQ Sodium Chloride 1,000 ml @ 30 mls/hr 1X ONCE 03/07/20 03:00 03/08/20 12:19 DC 03/07/20 03:00 30 MLS/HR Physical Exam: Mental Status Exam: Elderly gentleman appears his stated age, fairly groomed, fairly nourished Resistant to psychological exploration due to limited insight Disoriented Thought processes concrete Denies auditory or visual hallucinations. He is paranoid Denies suicidal or homicidal thoughts Mood is dysphoric Affect is dysthymic Insight is limited Judgment is limited Impulse control is fair. Attention span and concentration poor Recent memory is impaired Physical Exam: Refer to Physician's note. 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 Acute delirium, likely multifactorial, hypoactive and hyperactive mixed 2. Neurocognitive disorder, major, Alzheimer type Assessment: He is a elderly gentleman with history of Alzheimer disease admitted with confusion and GI bleed. Apparently, multiple medical health problems and underlying neurocognitive disorder are the major precipitating factor for delirium. Due to his neurodegenerative brain process he is at risk of being delirious. Denying suicidal or homicidal thoughts. Perseverative, concrete, and ruminating. It is reasonable to add Zyprexa temporarily to control behaviors and further resolution of delirium. Plan: 1. Continue Zyprexa 5 mg at bedtime for 2 resolution of delirium and aggressive behavior. 2. Risks, benefits, alternatives of the treatment are discussed. He is in agreement with plan and voiced understanding. 3. Adverse drug reaction of the medications including excessive sedation, risk of tardive dyskinesia are discussed. 4. Applied delirium protocol. Avoid sundowning. 5. Avoid sedatives and hypnotics. 7. Monitor for safety, confusion, symptomatology and adverse drug reaction. Thank you for involving inpatient care for KARLA RODRÍGUEZ MD Mar 13, 2020 14:36
[2020-03-13 15:10] VITALS: BP 161/70
--- NOTE | 2020-03-13 17:16 | NUR ---
SW following. RONALDO reviewed chart and spoke with RN. RONALDO coordinated care with Veronika the executive administrator at [facility] ([phone]), the guardian Oscar ([phone]), and the [facility] Eden Naik ([phone]). Updated clinicals were phoned and faxed to all three listed above. RONALDO also called and spoke with [facility] again today and they are now not able to take patients for another 2 weeks per COVID. Pt does not meet criteria for in-patient psychiatric care. Pt is COVID positive and Veronika from [facility] communicated understanding of this. Veronika from [facility] spoke with her corporate office and they will take pt back 03/17/2020 once it has been 10 days since initial COVID test. RONALDO explained that these are avoidable days and pt should still quarantine upon return to [facility]. Updated RN and CM as well as chick room supervisor Migue Mcgee of the status of this case. RONALDO to continue following. Addendum: 03/13/20 at 1723 by OSCAR HIGGINS Pt's second positive COVID test result was provided to Veronika from [facility] and she communicated understanding that the second test result is also positive.
[2020-03-13 19:00] VITALS: BP 160/70
[2020-03-13 23:00] VITALS: BP 146/75
[2020-03-14 03:00] VITALS: BP 147/91
[2020-03-14] MEDS: HYDROcodone/APAP 5/325MG 1 TAB TABLET PO PRN ×4 (05:03→18:11)
[2020-03-14 05:54] LABS: HEMATOCRIT 31.9 % (39.0-53.0); HEMOGLOBIN 10.5 g/dL (13.0-17.5); RED BLOOD COUNT 3.51 x10^6/uL (4.30-5.70); RED CELL DISTRIBUTION WIDTH 16.3 % (11.5-14.5); WHITE BLOOD COUNT 5.1 x10^3/uL (4.0-11.0)
[2020-03-14 06:02] LABS: ALBUMIN/GLOBULIN RATIO 0.9 (1.0-1.7); CREATININE 1.3 mg/dL (0.7-1.3); GFR 53.3; POTASSIUM 3.4 mmol/L (3.5-5.1); TOTAL BILIRUBIN 0.3 mg/dL (0.2-1.0); TOTAL PROTEIN 6.5 g/dL (6.4-8.2)
[2020-03-14 07:00] VITALS: BP 140/63
--- NOTE | 2020-03-14 08:00 | NUR ---
Pt having changes in telemetry. He has had episodes of second degree heart block that Dr Cha is aware of. Although it appears as though he maybe having some second degree type 2 and possibly third degree heart block. Pt is asymptomatic. Pt will be seen by cardiology.
[2020-03-14] MEDS: AMOXICILLIN/K CLAV 500/125MG TABLET. PO SCH ×2 (08:44→20:05)
[2020-03-14] MEDS: PANTOPRAZOLE 40 MG TABLET.DR. PO SCH (08:44)
[2020-03-14] MEDS: OLANZapine 5 MG TABLET PO SCH (08:44)
[2020-03-14] MEDS: LACTOBACILLUS RHAMNOSUS GG 1 CAPSULE. PO SCH ×2 (08:44→20:05)
--- NOTE | 2020-03-14 09:40 | PDOC ---
Objective: Objective: D/w nurse - cardiology to see re: heart block. Lots of stools last night, no bleeding. Vital Signs: Vital Signs Date Time Temp Pulse Resp B/P (MAP) Pulse Ox O2 Delivery O2 Flow Rate FiO2 03/14/20 09:29 18 Room Air 03/14/20 07:00 97.8 50 140/63 (88) 95 97.8 Labs: Laboratory Tests Test 03/13/20 10:10 03/14/20 05:30 Sodium Level 144 mmol/L 141 mmol/L Potassium Level 3.7 mmol/L 3.4 mmol/L Chloride Level 109 mmol/L 107 mmol/L Carbon Dioxide Level 24 mmol/L 25 mmol/L Anion Gap 11 9 Blood Urea Nitrogen 7 mg/dL 10 mg/dL Creatinine 1.3 mg/dL 1.3 mg/dL Estimated GFR (Cockcroft-Gault) 53.3 53.3 Glucose Level 117 mg/dL 117 mg/dL Calcium Level 8.3 mg/dL 8.0 mg/dL White Blood Count 5.1 x10^3/uL Red Blood Count 3.51 x10^6/uL Hemoglobin 10.5 g/dL Hematocrit 31.9 % Mean Corpuscular Volume 91 fL Mean Corpuscular Hemoglobin 30 pg Mean Corpuscular Hemoglobin Concent 33 g/dL Red Cell Distribution Width 16.3 % Platelet Count 200 x10^3/uL BUN/Creatinine Ratio 8 Total Bilirubin 0.3 mg/dL Aspartate Amino Transf (AST/SGOT) 19 U/L Alanine Aminotransferase (ALT/SGPT) 20 U/L Alkaline Phosphatase 59 U/L Total Protein 6.5 g/dL Albumin 3.0 g/dL Albumin/Globulin Ratio 0.9 PE: GEN: in COVID isolation LUNGS: room air HEART: bradycardic ABD: non-distended NEURO/PSYCH: confused A/P: Hematemesis/melena, anemia - resolved/improved Bradycardia, dementia, COVID-19 + -- Continue PPI QD, okay to use Imodium PRN. Monitor stools. Continue per primary and cardiology. Justicifation of Admission Dx: Justifications for Admission: Justification of Admission Dx: N/A BEAN THOMPSON Mar 14, 2020 09:40
--- NOTE | 2020-03-14 10:35 | PDOC ---
PROGRESS NOTES Subjective Subjective no complaints Objective Objective Vital Signs Date Time Temp Pulse Resp B/P (MAP) Pulse Ox O2 Delivery O2 Flow Rate FiO2 03/14/20 09:29 18 Room Air 03/14/20 07:00 97.8 50 140/63 (88) 95 97.8 Intake and Output 03/14/20 07:00 Intake Total 480 ml Output Total 1100 ml Balance -620 ml Intake Oral 480 ml Output Urine Total 1100 ml Physical Exam Abdomen: Soft Heart: Other Extremities: No clubbing, No edema General: Alert, Cooperative, No acute distress HEENT: Atraumatic Lungs: Clear to auscultation, Other MUSCULOSKELETAL: Osteoarthritic changes both hands Neuro: Normal speech Psych/Mental Status: Mental status NL, Mood NL Skin: No breakdown Assessment Assessment ASSESSMENT: 1. Acute blood loss anemia with hemoglobin and hematocrit that dropped down to 6.4 and 18, for which he received 2 units of packed RBCs. As of yesterday, his hemoglobin was 10, hematocrit 30. 2. Aggrenox-induced peptic ulcer disease. 3. Acute kidney injury, resolved. His BUN and creatinine are down to 8 and 1.2. 4. Severe protein-calorie malnutrition. Serum albumin is only 2.6 g/dL. 5. Aspiration pneumonia. 6. Sepsis, for which he was on Zyvox and Zosyn. 7. Other medical problems include: A. Dementia of Alzheimer's type. B. Hypertension. C. Type 2 diabetes mellitus. D. Hyperlipidemia. E. Chronic obstructive pulmonary disease. F. Chronic back pain. G. Constipation. H. The patient is known to be positive for COVID-19, currently on isolation. PLAN; heart block on monitor cardiology consulted covid positive asymptomatic spoke with cardiology and RN labs reviewed ok Comment Review of Relevant I have reviewed the following items johanna (where applicable) has been applied. Labs Laboratory Tests Test 03/14/20 05:30 White Blood Count 5.1 x10^3/uL (4.0-11.0) Red Blood Count 3.51 x10^6/uL (4.30-5.70) Hemoglobin 10.5 g/dL (13.0-17.5) Hematocrit 31.9 % (39.0-53.0) Mean Corpuscular Volume 91 fL (79-100) Mean Corpuscular Hemoglobin 30 pg (25-35) Mean Corpuscular Hemoglobin Concent 33 g/dL (31-37) Red Cell Distribution Width 16.3 % (11.5-14.5) Platelet Count 200 x10^3/uL (140-400) Sodium Level 141 mmol/L (136-145) Potassium Level 3.4 mmol/L (3.5-5.1) Chloride Level 107 mmol/L (98-107) Carbon Dioxide Level 25 mmol/L (21-32) Anion Gap 9 (6-14) Blood Urea Nitrogen 10 mg/dL (8-26) Creatinine 1.3 mg/dL (0.7-1.3) Estimated GFR (Cockcroft-Gault) 53.3 BUN/Creatinine Ratio 8 (6-20) Glucose Level 117 mg/dL (70-99) Calcium Level 8.0 mg/dL (8.5-10.1) Total Bilirubin 0.3 mg/dL (0.2-1.0) Aspartate Amino Transf (AST/SGOT) 19 U/L (15-37) Alanine Aminotransferase (ALT/SGPT) 20 U/L (16-63) Alkaline Phosphatase 59 U/L (46-116) Total Protein 6.5 g/dL (6.4-8.2) Albumin 3.0 g/dL (3.4-5.0) Albumin/Globulin Ratio 0.9 (1.0-1.7) Vitals/I & O Vital Sign - Last 24 Hours 03/13/20 03/13/20 03/13/20 03/13/20 11:21 13:42 14:42 15:10 Temp 98.1 97.6 98.1 97.6 Pulse 50 45 Resp 20 21 B/P (MAP) 137/62 (87) 161/70 (100) Pulse Ox 93 97 O2 Delivery Room Air Room Air Room Air Room Air 03/13/20 03/13/20 03/13/20 03/13/20 18:29 19:00 21:30 23:00 Temp 98.7 97.5 98.7 97.5 Pulse 61 60 Resp 17 18 20 B/P (MAP) 160/70 (100) 146/75 (98) Pulse Ox 97 94 O2 Delivery Room Air Room Air Room Air Room Air 03/14/20 03/14/20 03/14/20 03:00 07:00 09:29 Temp 97.4 97.8 97.4 97.8 Pulse 52 50 Resp 18 18 B/P (MAP) 147/91 (109) 140/63 (88) Pulse Ox 94 95 O2 Delivery Room Air Room Air Room Air Intake and Output 03/13/20 03/13/20 03/14/20 15:00 23:00 07:00 Intake Total 480 ml 0 ml Output Total 300 ml 600 ml 200 ml Balance 180 ml -600 ml -200 ml Justicifation of Admission Dx: Justifications for Admission: Justification of Admission Dx: N/A AMPARO ALEXIS MD Mar 14, 2020 10:34
[2020-03-14] MEDS ORDERED: POTASSIUM CHLORIDE 20 MEQ TABLET.ER. PO ONE (10:45)
[2020-03-14 11:00] VITALS: BP 132/63
--- NOTE | 2020-03-14 12:00 | NUR ---
Pt has been seen by Fili TO. Discussed possible loop recorder tuesday prior to discharge.
--- NOTE | 2020-03-14 13:01 | PDOC ---
BRANDY YBARRA INCOME TAX INVESTIGATOR 03/14/20 1300: CARDIO Progress Notes Date and Time Date of Service 03/14/2020 Time of Evaluation 1200 Subjective Subjective: No Chest Pain, No shortness of breath Vitals Vitals Vital Signs Date Time Temp Pulse Resp B/P (MAP) Pulse Ox O2 Delivery O2 Flow Rate FiO2 03/14/20 11:00 97.7 45 19 132/63 (86) 95 Room Air 97.7 Weight Weight [ ] Input and Output Intake and Output Intake and Output 03/14/20 07:00 Intake Total 480 ml Output Total 1100 ml Balance -620 ml Intake Oral 480 ml Output Urine Total 1100 ml Laboratory Labs Laboratory Tests Test 03/14/20 05:30 White Blood Count 5.1 x10^3/uL (4.0-11.0) Red Blood Count 3.51 x10^6/uL (4.30-5.70) Hemoglobin 10.5 g/dL (13.0-17.5) Hematocrit 31.9 % (39.0-53.0) Mean Corpuscular Volume 91 fL (79-100) Mean Corpuscular Hemoglobin 30 pg (25-35) Mean Corpuscular Hemoglobin Concent 33 g/dL (31-37) Red Cell Distribution Width 16.3 % (11.5-14.5) Platelet Count 200 x10^3/uL (140-400) Sodium Level 141 mmol/L (136-145) Potassium Level 3.4 mmol/L (3.5-5.1) Chloride Level 107 mmol/L (98-107) Carbon Dioxide Level 25 mmol/L (21-32) Anion Gap 9 (6-14) Blood Urea Nitrogen 10 mg/dL (8-26) Creatinine 1.3 mg/dL (0.7-1.3) Estimated GFR (Cockcroft-Gault) 53.3 BUN/Creatinine Ratio 8 (6-20) Glucose Level 117 mg/dL (70-99) Calcium Level 8.0 mg/dL (8.5-10.1) Total Bilirubin 0.3 mg/dL (0.2-1.0) Aspartate Amino Transf (AST/SGOT) 19 U/L (15-37) Alanine Aminotransferase (ALT/SGPT) 20 U/L (16-63) Alkaline Phosphatase 59 U/L (46-116) Total Protein 6.5 g/dL (6.4-8.2) Albumin 3.0 g/dL (3.4-5.0) Albumin/Globulin Ratio 0.9 (1.0-1.7) Physical Exam Chest: Symmetric LUNGS: Other (diminished) Heart: RRR (SR/SB with first degree AV block with intermittent mobitz. ) Abdomen: Soft N/T Extremities: No Calf Tenderness Neurology: alert, follow commands Other Exams Discussed with RN, pt is [place] and appears disoriented at times otherwsie no dizziness when ambulating in room with stable gait. Assessment Assessment 1. Hematemesis, anemia, GIB; s/p 4 untis PRBCs Hgb stable at 10.5 2. COVID PNA; on RA 3. Asymptomatic Bradyarrhythmias: noted with Mobitz type 1 with 2:1 intermittently progressing to type 2 with baseline first degree AV block and at times with junctional rhythm. No pauses lowest in the low 40s 4. Mild trop elevation; trop 0.274. most probably type II, demand ischemia in setting of above. 5. Hypertension; controlled 6. Hyperlipidemia 7. Diabetes, II 8. SANA; resolved 9. Dementia 10. Hypokalemia Recommendation 1. Replace K, check Mg and replace if warranted. 2. Aggrenox on hold due to GI bleed. 3. Avoid AV debra blocking agents and QT prolonging agents. At this time no warranted PPM. MCOT prior to DC, will verify protocol in regards to placement. 4. Could use Dopamine if patient becomes symptomatic 5. No further Aricept. 6. [facility] once fully recovered from Covid. Justicifation of Admission Dx: Justifications for Admission: Justification of Admission Dx: N/A DONNELL NAYAK MD 03/15/20 0725: CARDIO Progress Notes Plan Plan Late entry for 03/14/2020 Pt. seen and examined. Agree with above MULTIMEDIA SPECIALIST note. BRANDY YBARRA INCOME TAX INVESTIGATOR Mar 14, 2020 13:00 DONNELL NAYAK MD Mar 15, 2020 07:25
--- NOTE | 2020-03-14 13:42 | NUR ---
SW following. Spoke with RN and reviewed chart. Pt not medically ready for discharge per Dr. Yu. Cariology consulted for heart block monitoring. [facility] still plans to take pt back to [facility] on 03/17/2020 if medically clear. SW to continue following.
[2020-03-14] MEDS ORDERED: MAGNESIUM SULFATE 2GM 50 ML IV ONE (14:30)
[2020-03-14 20:14] VITALS: BP 119/52
[2020-03-15] VITALS (8 sets, daily range): BP systolic 117–153; BP diastolic 53–106
[2020-03-15] MEDS: HYDROcodone/APAP 5/325MG 1 TAB TABLET PO PRN ×6 (00:42→22:23)
[2020-03-15] MEDS: PANTOPRAZOLE 40 MG TABLET.DR. PO SCH (08:22)
[2020-03-15] MEDS: OLANZapine 5 MG TABLET PO SCH (08:22)
[2020-03-15] MEDS: AMOXICILLIN/K CLAV 500/125MG TABLET. PO SCH ×2 (08:22→21:15)
[2020-03-15] MEDS: LACTOBACILLUS RHAMNOSUS GG 1 CAPSULE. PO SCH ×2 (08:22→21:15)
--- NOTE | 2020-03-15 08:36 | PDOC ---
PROGRESS NOTES Subjective Subjective no new problems except bradycardia 30-40 hr Objective Objective Vital Signs Date Time Temp Pulse Resp B/P (MAP) Pulse Ox O2 Delivery O2 Flow Rate FiO2 03/15/20 07:00 97.1 43 20 128/63 (84) 94 Room Air 97.1 Intake and Output 03/15/20 07:00 Intake Total 720 ml Output Total 250 ml Balance 470 ml Intake Oral 720 ml Output Urine Total 250 ml # Voids 2 # Bowel Movements 2 Physical Exam Abdomen: Soft Heart: Other Extremities: No clubbing, No edema General: Alert, Cooperative, No acute distress HEENT: Atraumatic Lungs: Clear to auscultation, Other MUSCULOSKELETAL: Osteoarthritic changes both hands Neuro: Normal speech Psych/Mental Status: Mental status NL, Mood NL Skin: No breakdown Assessment Assessment ASSESSMENT: 1. Acute blood loss anemia with hemoglobin and hematocrit that dropped down to 6.4 and 18, for which he received 2 units of packed RBCs. As of yesterday, his hemoglobin was 10, hematocrit 30. 2. Aggrenox-induced peptic ulcer disease. 3. Acute kidney injury, resolved. His BUN and creatinine are down to 8 and 1.2. 4. Severe protein-calorie malnutrition. Serum albumin is only 2.6 g/dL. 5. Aspiration pneumonia. 6. Sepsis, for which he was on Zyvox and Zosyn. 7. Other medical problems include: A. Dementia of Alzheimer's type. B. Hypertension. C. Type 2 diabetes mellitus. D. Hyperlipidemia. E. Chronic obstructive pulmonary disease. F. Chronic back pain. G. Constipation. H. The patient is known to be positive for COVID-19, currently on isolation. PLAN;Replace pot and mag. heart block on monitor cardiology consult appreciated covid positive asymptomatic at present spoke with cardiology and RN labs tomorrow Comment Review of Relevant I have reviewed the following items johanna (where applicable) has been applied. Medications Current Medications Magnesium Sulfate 50 ml @ 25 mls/hr 1X ONCE IV Last administered on 03/14/20at 14:39; Start 03/14/20 at 14:30; Stop 03/14/20 at 16:29; Status DC Potassium Chloride (Klor-Con) 40 meq 1X ONCE PO Last administered on 03/14/20at 13:18; Start 03/14/20 at 10:45; Stop 7/24/20 at 10:46; Status DC Vitals/I & O Vital Sign - Last 24 Hours 03/14/20 03/14/20 03/14/20 03/14/20 09:29 10:29 11:00 13:32 Temp 97.7 97.7 Pulse 45 Resp 18 18 19 18 B/P (MAP) 132/63 (86) Pulse Ox 95 O2 Delivery Room Air Room Air Room Air Room Air 03/14/20 03/14/20 03/14/20 03/14/20 14:32 18:11 20:05 20:14 Temp 97.2 97.2 Pulse 52 Resp 18 17 20 B/P (MAP) 119/52 (74) Pulse Ox 96 O2 Delivery Room Air Room Air Room Air Room Air 03/15/20 03/15/20 03/15/20 03/15/20 00:42 00:48 03:00 06:36 Temp 97.2 98.1 97.2 98.1 Pulse 38 56 50 Resp 20 20 B/P (MAP) 134/88 (103) 144/91 (108) Pulse Ox 96 93 95 O2 Delivery Room Air Room Air Room Air 03/15/20 07:00 Temp 97.1 97.1 Pulse 43 Resp 20 B/P (MAP) 128/63 (84) Pulse Ox 94 O2 Delivery Room Air Intake and Output 03/14/20 03/14/20 03/15/20 15:00 23:00 07:00 Intake Total 720 ml Output Total 250 ml Balance 720 ml -250 ml Justicifation of Admission Dx: Justifications for Admission: Justification of Admission Dx: N/A AMPARO ALEXIS MD Mar 15, 2020 08:36
--- NOTE | 2020-03-15 11:17 | PDOC ---
PROGRESS NOTES Subjective Subjective No new complaints Objective Objective Vital Signs Date Time Temp Pulse Resp B/P (MAP) Pulse Ox O2 Delivery O2 Flow Rate FiO2 03/15/20 11:04 96.9 47 17 145/69 (94) 99 Room Air 96.9 Intake and Output 03/15/20 07:00 Intake Total 720 ml Output Total 250 ml Balance 470 ml Intake Oral 720 ml Output Urine Total 250 ml # Voids 2 # Bowel Movements 2 Physical Exam Abdomen: Soft Heart: Other Extremities: No clubbing, No edema General: Alert, Cooperative, No acute distress HEENT: Atraumatic Lungs: Clear to auscultation, Other MUSCULOSKELETAL: Osteoarthritic changes both hands Neuro: Normal speech Psych/Mental Status: Mental status NL, Mood NL Skin: No breakdown Assessment Assessment 1. Hematemesis, anemia, GIB; s/p 4 untis PRBCs Hgb stable at 10.5 2. COVID PNA; on RA 3. Asymptomatic Bradyarrhythmias: Mobitz type 1 with 2:1 intermittently progressing to type 2 with baseline first degree AV block. No significant pauses noted. We will consider event monitor versus loop recorder prior to discharge. 4. Mild trop elevation; trop 0.274. most probably type II, most probably demand ischemia 5. Hypertension; controlled 6. Hyperlipidemia 7. Diabetes, II, per IM 8. SANA; resolved 9. COVID positive, per IM Comment Review of Relevant I have reviewed the following items johanna (where applicable) has been applied. Medications Current Medications Magnesium Sulfate 50 ml @ 25 mls/hr 1X ONCE IV Last administered on 03/14/20at 14:39; Start 03/14/20 at 14:30; Stop 03/14/20 at 16:29; Status DC Vitals/I & O Vital Sign - Last 24 Hours 03/14/20 03/14/20 03/14/20 03/14/20 13:32 14:32 18:11 20:05 Resp 18 18 17 O2 Delivery Room Air Room Air Room Air Room Air 03/14/20 03/15/20 03/15/20 03/15/20 20:14 00:42 00:48 03:00 Temp 97.2 97.2 97.2 97.2 Pulse 52 38 56 Resp 20 20 B/P (MAP) 119/52 (74) 134/88 (103) Pulse Ox 96 96 93 O2 Delivery Room Air Room Air Room Air 03/15/20 03/15/20 03/15/20 03/15/20 06:36 07:00 08:00 11:04 Temp 98.1 97.1 96.9 98.1 97.1 96.9 Pulse 50 43 47 Resp 20 20 17 B/P (MAP) 144/91 (108) 128/63 (84) 145/69 (94) Pulse Ox 95 94 99 O2 Delivery Room Air Room Air Room Air Room Air Intake and Output 03/14/20 03/14/20 03/15/20 15:00 23:00 07:00 Intake Total 720 ml Output Total 250 ml Balance 720 ml -250 ml BUFFY CALLES MD Mar 15, 2020 11:17
[2020-03-15] MEDS: LOPERAMIDE 2 MG CAPSULE PO PRN ×2 (17:40→21:16)
[2020-03-16 02:25] VITALS: BP 125/60
[2020-03-16] MEDS: HYDROcodone/APAP 5/325MG 1 TAB TABLET PO PRN ×2 (03:40→09:20)
[2020-03-16 04:25] LABS: BASO % 0 % (0-3); EOS # 0.4 x10^3/uL (0.0-0.7); EOS % 8 % (0-3); HEMATOCRIT 29.8 % (39.0-53.0); HEMOGLOBIN 9.9 g/dL (13.0-17.5); LYMPH # 1.4 x10^3/uL (1.0-4.8); LYMPH % 32 % (24-48); MEAN CORPUSCULAR HEMOGLOBIN 30 pg (25-35); MEAN CORPUSCULAR HGB CONC 33 g/dL (31-37); MEAN CORPUSCULAR VOLUME 91 fL (79-100); MONO # 0.6 x10^3/uL (0.0-1.1); MONO % 13 % (0-9); NEUT # 2.1 x10^3/uL (1.8-7.7); NEUT % 48 % (31-73); PLATELET COUNT 204 x10^3/uL (140-400); RED BLOOD COUNT 3.29 x10^6/uL (4.30-5.70); RED CELL DISTRIBUTION WIDTH 16.8 % (11.5-14.5); WHITE BLOOD COUNT 4.5 x10^3/uL (4.0-11.0)
[2020-03-16 04:27] LABS: CALCIUM 8.2 mg/dL (8.5-10.1); CREATININE 1.4 mg/dL (0.7-1.3); GFR 48.9; MAGNESIUM 1.7 mg/dL (1.8-2.4); POTASSIUM 3.9 mmol/L (3.5-5.1)
[2020-03-16 07:47] VITALS: BP 105/58
[2020-03-16] MEDS: OLANZapine 5 MG TABLET PO SCH (09:20)
[2020-03-16] MEDS: LACTOBACILLUS RHAMNOSUS GG 1 CAPSULE. PO SCH ×2 (09:20→20:21)
[2020-03-16] MEDS: AMOXICILLIN/K CLAV 500/125MG TABLET. PO SCH ×2 (09:20→20:21)
[2020-03-16] MEDS: PANTOPRAZOLE 40 MG TABLET.DR. PO SCH (09:21)
[2020-03-16 11:24] VITALS: BP 160/80
--- NOTE | 2020-03-16 11:25 | PDOC ---
PROGRESS NOTES Subjective Subjective no new problems Objective Objective Vital Signs Date Time Temp Pulse Resp B/P (MAP) Pulse Ox O2 Delivery O2 Flow Rate FiO2 03/16/20 08:00 Room Air 03/16/20 07:47 98.6 54 20 105/58 (74) 94 98.6 Intake and Output 03/16/20 07:00 Intake Total 660 ml Output Total 1100 ml Balance -440 ml Intake Oral 660 ml Output Urine Total 1100 ml # Voids 4 # Bowel Movements 4 Physical Exam Abdomen: Soft Heart: Other Extremities: No clubbing, No edema General: Alert, Cooperative, No acute distress HEENT: Atraumatic Lungs: Clear to auscultation, Other MUSCULOSKELETAL: Osteoarthritic changes both hands Neuro: Normal speech Psych/Mental Status: Mental status NL, Mood NL Skin: No breakdown Assessment Assessment ASSESSMENT:Bradycardia 1. Acute blood loss anemia with hemoglobin and hematocrit that dropped down to 6.4 and 18, for which he received 2 units of packed RBCs. As of yesterday, his hemoglobin was 10, hematocrit 30. 2. Aggrenox-induced peptic ulcer disease. 3. Acute kidney injury, resolved. His BUN and creatinine are down to 8 and 1.2. 4. Severe protein-calorie malnutrition. Serum albumin is only 2.6 g/dL. 5. Aspiration pneumonia. 6. Sepsis, for which he was on Zyvox and Zosyn. 7. Other medical problems include: A. Dementia of Alzheimer's type. B. Hypertension. C. Type 2 diabetes mellitus. D. Hyperlipidemia. E. Chronic obstructive pulmonary disease. F. Chronic back pain. G. Constipation. H. The patient is known to be positive for COVID-19, currently on isolation. PLAN;no pacemaker plans at this time as per cardiology Replaced pot and mag. Bradycardia on monitor cardiology consult appreciated covid positive asymptomatic at present spoke with cardiology and RN labs ok snu screen Comment Review of Relevant I have reviewed the following items johanna (where applicable) has been applied. Labs Laboratory Tests Test 03/16/20 04:00 White Blood Count 4.5 x10^3/uL (4.0-11.0) Red Blood Count 3.29 x10^6/uL (4.30-5.70) Hemoglobin 9.9 g/dL (13.0-17.5) Hematocrit 29.8 % (39.0-53.0) Mean Corpuscular Volume 91 fL (79-100) Mean Corpuscular Hemoglobin 30 pg (25-35) Mean Corpuscular Hemoglobin Concent 33 g/dL (31-37) Red Cell Distribution Width 16.8 % (11.5-14.5) Platelet Count 204 x10^3/uL (140-400) Neutrophils (%) (Auto) 48 % (31-73) Lymphocytes (%) (Auto) 32 % (24-48) Monocytes (%) (Auto) 13 % (0-9) Eosinophils (%) (Auto) 8 % (0-3) Basophils (%) (Auto) 0 % (0-3) Neutrophils # (Auto) 2.1 x10^3/uL (1.8-7.7) Lymphocytes # (Auto) 1.4 x10^3/uL (1.0-4.8) Monocytes # (Auto) 0.6 x10^3/uL (0.0-1.1) Eosinophils # (Auto) 0.4 x10^3/uL (0.0-0.7) Basophils # (Auto) 0.0 x10^3/uL (0.0-0.2) Sodium Level 139 mmol/L (136-145) Potassium Level 3.9 mmol/L (3.5-5.1) Chloride Level 105 mmol/L (98-107) Carbon Dioxide Level 24 mmol/L (21-32) Anion Gap 10 (6-14) Blood Urea Nitrogen 12 mg/dL (8-26) Creatinine 1.4 mg/dL (0.7-1.3) Estimated GFR (Cockcroft-Gault) 48.9 Glucose Level 104 mg/dL (70-99) Calcium Level 8.2 mg/dL (8.5-10.1) Magnesium Level 1.7 mg/dL (1.8-2.4) Vitals/I & O Vital Sign - Last 24 Hours 03/15/20 03/15/20 03/15/20 03/15/20 15:00 19:50 19:58 20:00 Temp 98.8 99.5 98.8 99.5 Pulse 57 52 Resp 18 24 B/P (MAP) 117/53 (74) 153/106 (122) 138/67 (90) Pulse Ox 98 95 O2 Delivery Room Air Room Air Room Air 03/15/20 03/15/20 03/15/20 03/16/20 22:23 23:23 23:36 02:25 Temp 98.6 95.7 98.6 95.7 Pulse 60 52 Resp 24 26 B/P (MAP) 145/77 (99) 125/60 (81) Pulse Ox 95 94 O2 Delivery Room Air Room Air Room Air 03/16/20 03/16/20 03/16/20 04:40 07:47 08:00 Temp 98.6 98.6 Pulse 54 Resp 20 B/P (MAP) 105/58 (74) Pulse Ox 94 O2 Delivery Room Air Room Air Room Air Intake and Output 03/15/20 03/15/20 03/16/20 15:00 23:00 07:00 Intake Total 660 ml Output Total 100 ml 100 ml 900 ml Balance -100 ml -100 ml -240 ml Justicifation of Admission Dx: Justifications for Admission: Justification of Admission Dx: N/A AMPARO ALEXIS MD Mar 16, 2020 11:25
[2020-03-16] MEDS ORDERED: MAGNESIUM SULFATE 2GM 50 ML IV ONE (12:00)
--- NOTE | 2020-03-16 12:50 | PDOC ---
PROGRESS NOTES Subjective Subjective No new complaints Objective Objective Vital Signs Date Time Temp Pulse Resp B/P (MAP) Pulse Ox O2 Delivery O2 Flow Rate FiO2 03/16/20 11:24 98.4 57 18 160/80 (106) 96 Room Air 98.4 Intake and Output 03/16/20 07:00 Intake Total 660 ml Output Total 1100 ml Balance -440 ml Intake Oral 660 ml Output Urine Total 1100 ml # Voids 4 # Bowel Movements 4 Physical Exam Abdomen: Soft Heart: Other Extremities: No clubbing, No edema General: Alert, Cooperative, No acute distress HEENT: Atraumatic Lungs: Clear to auscultation, Other MUSCULOSKELETAL: Osteoarthritic changes both hands Neuro: Normal speech Psych/Mental Status: Mental status NL, Mood NL Skin: No breakdown Assessment Assessment 1. Hematemesis, acute blood loss anemia, GIB; s/p transfusion 2. COVID PNA; per IM 3. Asymptomatic Bradyarrhythmias: Mobitz type 1 with 2:1 intermittently progressing to type 2 with baseline first degree AV block. Telemetry showed 3- second pause. Continue to monitor 4. Mild trop elevation; trop 0.274. most probably type II, most probably demand ischemia 5. Hypertension; controlled 6. Hyperlipidemia 7. Diabetes, II, per IM 8. SANA; resolved 9. COVID positive, per IM Comment Review of Relevant I have reviewed the following items johanna (where applicable) has been applied. Labs Laboratory Tests Test 03/16/20 04:00 White Blood Count 4.5 x10^3/uL (4.0-11.0) Red Blood Count 3.29 x10^6/uL (4.30-5.70) Hemoglobin 9.9 g/dL (13.0-17.5) Hematocrit 29.8 % (39.0-53.0) Mean Corpuscular Volume 91 fL (79-100) Mean Corpuscular Hemoglobin 30 pg (25-35) Mean Corpuscular Hemoglobin Concent 33 g/dL (31-37) Red Cell Distribution Width 16.8 % (11.5-14.5) Platelet Count 204 x10^3/uL (140-400) Neutrophils (%) (Auto) 48 % (31-73) Lymphocytes (%) (Auto) 32 % (24-48) Monocytes (%) (Auto) 13 % (0-9) Eosinophils (%) (Auto) 8 % (0-3) Basophils (%) (Auto) 0 % (0-3) Neutrophils # (Auto) 2.1 x10^3/uL (1.8-7.7) Lymphocytes # (Auto) 1.4 x10^3/uL (1.0-4.8) Monocytes # (Auto) 0.6 x10^3/uL (0.0-1.1) Eosinophils # (Auto) 0.4 x10^3/uL (0.0-0.7) Basophils # (Auto) 0.0 x10^3/uL (0.0-0.2) Sodium Level 139 mmol/L (136-145) Potassium Level 3.9 mmol/L (3.5-5.1) Chloride Level 105 mmol/L (98-107) Carbon Dioxide Level 24 mmol/L (21-32) Anion Gap 10 (6-14) Blood Urea Nitrogen 12 mg/dL (8-26) Creatinine 1.4 mg/dL (0.7-1.3) Estimated GFR (Cockcroft-Gault) 48.9 Glucose Level 104 mg/dL (70-99) Calcium Level 8.2 mg/dL (8.5-10.1) Magnesium Level 1.7 mg/dL (1.8-2.4) Medications Current Medications Magnesium Sulfate 50 ml @ 25 mls/hr 1X ONCE IV Last administered on 03/16/20at 12:24; Start 03/16/20 at 12:00; Stop 03/16/20 at 13:59 Vitals/I & O Vital Sign - Last 24 Hours 03/15/20 03/15/20 03/15/20 03/15/20 15:00 19:50 19:58 20:00 Temp 98.8 99.5 98.8 99.5 Pulse 57 52 Resp 18 24 B/P (MAP) 117/53 (74) 153/106 (122) 138/67 (90) Pulse Ox 98 95 O2 Delivery Room Air Room Air Room Air 03/15/20 03/15/20 03/15/20 03/16/20 22:23 23:23 23:36 02:25 Temp 98.6 95.7 98.6 95.7 Pulse 60 52 Resp 24 26 B/P (MAP) 145/77 (99) 125/60 (81) Pulse Ox 95 94 O2 Delivery Room Air Room Air Room Air 03/16/20 03/16/20 03/16/20 03/16/20 04:40 07:47 08:00 11:24 Temp 98.6 98.4 98.6 98.4 Pulse 54 57 Resp 20 18 B/P (MAP) 105/58 (74) 160/80 (106) Pulse Ox 94 96 O2 Delivery Room Air Room Air Room Air Room Air Intake and Output 03/15/20 03/15/20 03/16/20 15:00 23:00 07:00 Intake Total 660 ml Output Total 100 ml 100 ml 900 ml Balance -100 ml -100 ml -240 ml BUFFY CALLES MD Mar 16, 2020 12:50
[2020-03-16 15:20] VITALS: BP 154/66
[2020-03-16 19:56] VITALS: BP 123/62
[2020-03-16 23:08] VITALS: BP 123/57
[2020-03-17 03:56] VITALS: BP 119/53
[2020-03-17 07:00] VITALS: BP 149/62
[2020-03-17] MEDS: AMOXICILLIN/K CLAV 500/125MG TABLET. PO SCH ×2 (09:48→21:33)
[2020-03-17] MEDS: PANTOPRAZOLE 40 MG TABLET.DR. PO SCH (09:48)
[2020-03-17] MEDS: HYDROcodone/APAP 5/325MG 1 TAB TABLET PO PRN ×2 (09:48→21:33)
[2020-03-17] MEDS: LACTOBACILLUS RHAMNOSUS GG 1 CAPSULE. PO SCH ×2 (09:48→21:33)
[2020-03-17] MEDS: OLANZapine 5 MG TABLET PO SCH (09:48)
--- NOTE | 2020-03-17 10:39 | NUR ---
RONALDO following. Spoke with RN and CM. Reviewed chart. Pt clear for discharge per Dr. Cifuentes. SW awaiting final discharge orders. RONALDO copied chart and it is ready to be sent with patient. RN to call report to the nurse on the [place] [facility] at [facility], , (fax). RONALDO faxed completed [facility] transfer form and [facility] will transport pt at 1300. Addendum: 03/17/20 at 1147 by OSCAR HIGGINS RONALDO changed [facility] transport time to 1600 per cardiology consult. RONALDO phoned and faxed final discharge orders, . No further RONALDO needs at this time. Addendum: 03/17/20 at 1722 by OSCAR HIGGINS RONALDO cancelled transport from [facility] and notified admissions with [facility] that pt will not discharge today. Pt seen by cardiology and pacemaker is needed. SW to follow Addendum: 03/18/20 at 1245 [address] OSCAR [address]VIN SW Dr. Gonzalez patient. Not Dr. Cifuentes.
[2020-03-17 11:13] VITALS: BP 144/62
--- NOTE | 2020-03-17 11:18 | SNU/HH DC ---
DISCHARGE ORDERS DISCHARGE INFORMATION: DISCHARGE DATE: Mar 17, 2020 FINAL DIAGNOSIS acute blood loss anemia Aggrenox induced peptic ulcer disease aspiration pneumonia intermittent asymptomatic brayarrhythmias COVID 19 POSITIVE CONDITION ON DISCHARGE: Stable CODE STATUS: Code Status: Full SNF: SNF STAY <30 DAYS: Yes POST DISCHARGE ORDERS: ACTIVITY ORDERS: Activity as tolerated DIET AFTER DISCHARGE: Cardiac TREATMENT/EQUIPMENT ORDERS: Physical Therapy For: Evalulation/Treatment Occupational Therapy For: Evaluation/Treatment DISCHARGE MEDICATIONS: Home Meds Reported Medications Metformin Hcl (METFORMIN HCL ER) 500 Mg Tab.er.24h, 500 MG PO DAILYWBKFT for ANTI-DIABETIC, TAB 0 Refills 03/07/20 Memantine Hcl (NAMENDA) 10 Mg Tablet, 10 MG PO BID for dementia, TAB 03/07/20 Magnesium Oxide (Magnesium Oxide) 400 Mg Tablet, 400 MG PO 1-2XD PRN for MUSCLE PAIN, TAB 03/07/20 Loperamide Hcl (LOPERAMIDE) 2 Mg Tablet, 1 TAB PO Q4HRS for loose stool for 30 Days, #180 TAB 0 Refills 03/07/20 Lisinopril (LISINOPRIL) 2.5 Mg Tablet, 1 TAB PO DAILY for htn, #30 TAB 5 Refills 03/07/20 Ipratropium [place] (ATROVENT HFA) 12.9 Gm Hfa.aer.ad, 2 PUFF IH QID for lung, #12.9 GM 5 Refills 03/07/20 Hydrocodone Bit/Acetaminophen (HYDROCODONE-APAP 5-325 ) 1 Tab Tablet, 1 TAB PO PRN Q6HRS PRN for PAIN, TAB 0 Refills 03/07/20 Fluticasone/Vilanterol (BREO ELLIPTA 100-25 MCG INH) 1 Each Aer.pow.ba, 1 PUFF IH DAILY for lung, INHALER 03/07/20 Fenofibrate Nanocrystallized (FENOFIBRATE) 145 Mg Tablet, 145 MG PO DAILY for hld, TAB 03/07/20 Donepezil Hcl (DONEPEZIL HCL) 10 Mg Tablet, 1 TAB PO DAILY for dementia, #90 TAB 1 Refill 03/07/20 Cholecalciferol (Vitamin D3) (D3-50) 50,000 Unit Capsule, 84658 UNIT PO 1X for vit, CAP 03/07/20 Aspirin/Dipyridamole (AGGRENOX 25 MG-200 MG CAPSULE) 1 Each Cpmp.12hr, 1 CAP PO BID for heart, #60 CAP 5 Refills 03/07/20 Albuterol Sulfate (PROAIR HFA INHALER) 8.5 Gm Hfa.aer.ad, 2 PUFF IH PRN Q4-6HRS PRN for wheezing for 21 Days, #1 INHALER 0 Refills 03/07/20 Acetaminophen (TYLENOL) 325 Mg Tablet, 1-2 TAB PO QID for pain, #60 TAB 2 Refills 03/07/20 ONEAL MENA MD Mar 17, 2020 11:18
--- NOTE | 2020-03-17 11:42 | PN ---
DATE: 03/17/2020 SUBJECTIVE: The patient is resting, slightly propped up in bed, in no apparent distress. He is very confused, but denied any complaint. The nursing staff did not voice any concern except that he continued to have intermittent asymptomatic bradycardia. OBJECTIVE: GENERAL: When I examined him, he looked pale, but no jaundice or cyanosis. No lymphadenopathy, no thyromegaly. No jugular venous distention. No lower limb edema. VITAL SIGNS: His heart rate was 50, blood pressure 149/62, temperature was 98.6, respiratory rate was 19 and oxygen saturation was 93%. HEAD, EYES, EARS, NOSE, AND THROAT: Showed normocephalic, atraumatic. NECK: Supple. HEART: Showed normal first and second heart sounds. No gallop, rub or murmur. CHEST: Clear to auscultation. No crepitation or rhonchi. ABDOMEN: Distended, soft, nontender. No guarding or rigidity. No organomegaly. All hernial orifice intact. Bowel sounds normal. NEUROLOGIC: He is demented without any obvious lateralizing sign. All his cranial nerves are intact. He moves extremities without difficulty, ambulates without assistance or assistive devices. His intake over the last 24 hours was 660, output was 1100. LABORATORY DATA: As of yesterday, his white cell count was 4500, hemoglobin 10, hematocrit 30, MCV 91, and platelet count of 204,000. Serum sodium was 139, potassium 3.9, chloride 105, bicarbonate 24, anion gap of 10, BUN 12, creatinine 1.4, estimated GFR was 49 mL per minute. His glucose was 104, calcium was 8.2, magnesium was 1.7. ASSESSMENT AND PLAN: 1. Acute blood loss anemia with hemoglobin and hematocrit that dropped down to 6.4 and 18 for which he received 2 units of packed RBCs. As of yesterday, his hemoglobin was 10, hematocrit 30. 2. Aggrenox induced peptic ulcer disease. 3. Acute kidney injury, resolved. His BUN and creatinine are down to 12 and 1.4. 4. Severe protein-calorie malnutrition, serum albumin is only 2.6 g/dL. 5. Aspiration pneumonia, received both IV and oral antibiotic. 6. Sepsis, which he was treated with Zyvox and Zosyn as well as oral Augmentin and complete the course of treatment. 7. Other medical problems include: A. Dementia of Alzheimer type. B. Hypertension. C. Type 2 diabetes mellitus. D. Hyperlipidemia. E. Chronic obstructive pulmonary disease. F. Chronic back pain. G. Constipation. H. The patient is known to be positive for COVID-19, currently in isolation. 8. Intermittent bradyarrhythmia that is asymptomatic. He was seen by the Cardiology team and the plan is for him to have a loop recorder if that was accomplished, today, he can be discharged back to his custodial facility. ONEAL MENA MD DR: LYUDMILA/emily JOB#: [id number] / [id number]
--- NOTE | 2020-03-17 14:09 | PDOC ---
NAYA BERG CHRIS 03/17/20 1409: CARDIO Progress Notes Date and Time Date of Service 03/17/20 Time of Evaluation 1140 Subjective Subjective: No Chest Pain, No shortness of breath, No Dizziness Vitals Vitals Vital Signs Date Time Temp Pulse Resp B/P (MAP) Pulse Ox O2 Delivery O2 Flow Rate FiO2 03/17/20 11:13 98.6 47 17 144/62 (89) 94 Room Air 98.6 Weight Weight [ ] Input and Output Intake and Output Intake and Output 03/17/20 07:00 Intake Total 985 ml Output Total 1200 ml Balance -215 ml Intake Oral 910 ml IV Total 75 ml Output Urine Total 1200 ml # Voids 4 # Bowel Movements 7 Physical Exam HEENT: Neck Supple W Full Motion Chest: Symmetric LUNGS: Other (diminished) Heart: RRR (SB with intermittent mobitz type I and II block. ) Abdomen: Soft N/T Extremities: No Calf Tenderness Neurology: alert, follow commands, confused Assessment Assessment 1. Hematemesis, acute blood loss anemia, GIB; s/p transfusion 2. COVID PNA; per IM 3. Bradyarrhythmias: mostly second degree type 1 AVB, but also progressing to high-grade AV block. Mean HR 40. Lowest 29 noted. 4. Mild trop elevation; trop 0.274. most probably type II, most probably demand ischemia 5. Hypertension; controlled 6. Hyperlipidemia 7. Diabetes, II, per IM 8. SANA; resolved Recommendations Given ongoing profound bradycardia and intermittent high-grade AV block, recommend PPM insertion. R/b/a were discussed with both patient and DPOA, legal guardian Felicitas Greenwood and they are agreeable to proceed Keep NPO Will proceed with in am. Supportive care Justicifation of Admission Dx: Justifications for Admission: Justification of Admission Dx: N/A DONNELL NAYAK MD 03/17/20 1724: CARDIO Progress Notes Plan Plan Agree with above nurse practitioner note. Plan for a pacemaker tomorrow. Consent will be obtained for the patient's power of privacy attorney. Supportive care for now. NAYA BERG CHRIS Mar 17, 2020 14:09 DONNELL NAYAK MD Mar 17, 2020 17:24
--- NOTE | 2020-03-17 14:45 | NUR ---
Notified Dr. Gonzalez that patient will be going for a pacemaker tomorrow and discharge is delayed pending cardiology clearance.
[2020-03-17 15:23] VITALS: BP 134/59
--- NOTE | 2020-03-17 16:56 | PDOC ---
F/U PHYSCH PROG NOTE Subjective: Elderly gentleman seen for routine follow-up. Progress is reviewed with nursing staff. No major emotional or behavioral breakdown reported overnight. Interval history is negative for any suicidality, agitation or psychosis. He appears to be more cooperative, relatively interactive and conversant. However he spo radically ruminating that he wanted to go home. He is not aware that why he is in the hospital. Patient has severe bradycardia requiring placement of pacemaker tomorrow. Aside from that, delirium appears to be resolving. However, reportedly he is still having fluctuating level of consciousness which is not very marked. Denies suicidal or homicidal thoughts. Denies auditory or visual hallucinations. No evidence of feliz or hypomania. Tolerating medications denies adverse drug reaction. Objective: Vital Signs: Vital Signs Date Time Temp Pulse Resp B/P (MAP) Pulse Ox O2 Delivery O2 Flow Rate FiO2 03/17/20 15:23 98.3 43 16 134/59 (84) 97 Room Air 98.3 Medications: Current Medications Medications (Trade) Dose Ordered Sig/Frieda Start Time Stop Time Status Last Admin Dose Admin Acetaminophen/ Hydrocodone Bitart (Lortab 5/325) 1 tab PRN Q4HRS PRN 03/09/20 09:00 03/17/20 09:48 1 TAB Albuterol Sulfate (Ventolin Hfa) 1 puff PRN Q4HRS PRN 03/12/20 11:45 Amino Acids/ Glycerin/ Electrolytes 1,000 ml @ 80 mls/hr [id number] 03/08/20 09:00 03/10/20 08:23 DC 03/09/20 07:53 80 MLS/HR Amoxicillin/ Clavulanate Potassium (Augmentin 500/ 125mg) 1 tab BID 03/10/20 21:00 03/17/20 09:48 1 TAB Cefazolin Sodium/ Dextrose 50 ml @ 100 mls/hr 1X PRN PRN 03/18/20 08:00 Fentanyl Citrate (Fentanyl 2ml Vial) 50 mcg PRN Q2HR PRN 03/07/20 02:45 03/08/20 09:43 50 MCG Lactobacillus Rhamnosus (Culturelle) 1 cap BID 03/09/20 21:00 03/17/20 09:48 1 CAP Linezolid/Dextrose 300 ml @ 300 mls/hr Q12HR 03/07/20 05:00 03/10/20 08:23 DC 03/09/20 21:49 300 MLS/HR Loperamide HCl (Imodium) 2 mg PRN Q15MIN PRN 03/11/20 13:00 03/15/20 21:16 2 MG Magnesium Sulfate 50 ml @ 25 mls/hr 1X ONCE 03/16/20 12:00 03/16/20 13:59 DC 03/16/20 12:24 25 MLS/HR Norepinephrine Bitartrate 8 mg/ Dextrose 258 ml @ 22.446 mls/ hr CONT PRN 03/07/20 02:45 03/13/20 14:11 DC Olanzapine (ZyPREXA) 5 mg DAILY 03/12/20 09:00 03/17/20 09:48 5 MG Ondansetron HCl (Zofran) 4 mg PRN Q6HRS PRN 03/07/20 02:45 03/09/20 12:09 4 MG Pantoprazole Sodium (Protonix) 40 mg DAILYAC 03/10/20 13:00 03/17/20 09:48 40 MG Pantoprazole Sodium 80 mg/ Sodium Chloride 100 ml @ 10 mls/hr Q10H 03/07/20 03:00 03/10/20 02:59 DC 03/10/20 04:23 10 MLS/HR Piperacillin Sod/ Tazobactam Sod (Zosyn Per Pharmacy) 1 each PRN DAILY PRN 03/07/20 02:45 03/10/20 08:25 DC Piperacillin Sod/ Tazobactam Sod 2.25 gm/Sodium Chloride 50 ml @ 100 mls/hr Q6HRS 03/07/20 06:00 03/08/20 14:44 DC 03/08/20 13:15 100 MLS/HR Piperacillin Sod/ Tazobactam Sod 3.375 gm/Sodium Chloride 50 ml @ 100 mls/hr Q6HRS 03/08/20 18:00 03/10/20 08:23 DC 03/10/20 05:47 100 MLS/HR Potassium Chloride (Klor-Con) 40 meq 1X ONCE 03/14/20 10:45 03/14/20 10:46 DC 03/14/20 13:18 40 MEQ Sodium Chloride 1,000 ml @ 30 mls/hr 1X ONCE 03/07/20 03:00 03/08/20 12:19 DC 03/07/20 03:00 30 MLS/HR Physical Exam: Mental Status Exam: Elderly gentleman appears his stated age, fairly groomed, fairly nourished Resistant to psychological exploration due to limited insight Disoriented Thought processes concrete Denies auditory or visual hallucinations. He is paranoid Denies suicidal or homicidal thoughts Mood is better Affect is euthymic Insight is fair Judgment is fair Impulse control is fair. Attention span and concentration fair Recent memory is impaired Physical Exam: Refer to Physician's note. PEANUT VENDOR: No focal deficit MSK: No EPS, TDK, or abnormal involuntary movements Diagnosis: 1. Acute delirium, likely multifactorial, hypoactive and hyperactive mixed 2. Neurocognitive disorder, major, Alzheimer type Assessment: He is a elderly gentleman with history of Alzheimer disease admitted with confusion and GI bleed. Apparently, multiple medical health problems and underlying neurocognitive disorder are the major precipitating factor for delirium. Due to his neurodegenerative brain process he is at risk of being delirious. Denying suicidal or homicidal thoughts. Perseverative, concrete, and ruminating. It is reasonable to add Zyprexa temporarily to control behaviors and further resolution of delirium. Plan: 1. Continue Zyprexa 5 mg at bedtime for 2 resolution of delirium and aggressive behavior. 2. Risks, benefits, alternatives of the treatment are discussed. He is in agreement with plan and voiced understanding. 3. Adverse drug reaction of the medications including excessive sedation, risk of tardive dyskinesia are discussed. 4. Applied delirium protocol. Avoid sundowning. 5. Avoid sedatives and hypnotics. 7. Monitor for safety, confusion, symptomatology and adverse drug reaction. Thank you for involving inpatient care for KARLA RODRÍGUEZ MD Mar 17, 2020 16:56
[2020-03-17 19:00] VITALS: BP 121/58
[2020-03-17] MEDS: LOPERAMIDE 2 MG CAPSULE PO PRN (21:33)
[2020-03-17 23:00] VITALS: BP 126/62
[2020-03-18 02:47] VITALS: BP 131/56
[2020-03-18 07:00] VITALS: BP 117/58
[2020-03-18] MEDS: PANTOPRAZOLE 40 MG TABLET.DR. PO SCH (09:56)
[2020-03-18] MEDS: LACTOBACILLUS RHAMNOSUS GG 1 CAPSULE. PO SCH (09:56)
[2020-03-18] MEDS: OLANZapine 5 MG TABLET PO SCH (09:56)
[2020-03-18 11:00] VITALS: BP 158/68
--- NOTE | 2020-03-18 11:57 | DS ---
DATE OF DISCHARGE: HOSPITAL COURSE: The patient is a 79-year-old male patient who was originally transferred from [facility] where he has had multiple episodes of hematemesis. At that time, he was admitted to the ICU and he did receive 2 units of packed RBCs and since then, his H and H has stabilized. In fact, his most recent hemoglobin was 10, hematocrit 30, has been hemodynamically stable and afebrile. 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 His main heart rate was about 40 and the lowest heart rate was 29 and initially there were plans for a pacemaker placement; however, the director franchise sales realized that there is no safe place for him to have the pacemaker placed given that he is still COVID positive. He cannot be taken to the [facility] and this cannot be done also at the OR and as he has largely remained stable, the director franchise sales recommended discharge him to a long term facility and to repeat his COVID testing and once it is negative, he can come back and have the pacemaker placed. PHYSICAL EXAMINATION: GENERAL: On examining him today, he looked well and was clearly in no apparent respiratory distress, pale, but no jaundice, cyanosis or thyromegaly. No jugular venous distention. No limb edema. VITAL SIGNS: His heart rate was 44, blood pressure was 117/58, temperature was 97.5, respiratory rate 22, and oxygen saturation was 94% on room air. HEAD, EYES, EARS, NOSE AND THROAT: Showed normocephalic, atraumatic. NECK: Supple. HEART: Showed normal first and second heart sounds. No gallop, rub or murmur. CHEST: Clear to auscultation. No crepitation or rhonchi. ABDOMEN: Distended, soft, nontender. NEUROLOGIC: He is demented, but otherwise grossly intact. His intake over the last 24 hours was 985, output was 1200. LABORATORY DATA: His most recent white cell count was 4500, hemoglobin 10, hematocrit 30, MCV 91, and platelet count 204,000. Serum sodium was 139, potassium 3.9, chloride 105, bicarbonate 24, anion gap of 10, BUN 12, creatinine 1.4, estimated GFR was 49 mL per minute. His glucose was 104, calcium was 8.2, magnesium was 1.7. His COVID-19 by PCR was detected on 03/11/2020. His C. diff toxins were negative. He was discharged to continue on Tylenol 650 mg every 4 hours as needed, albuterol sulfate for ProAir 2 puffs every 4 hours as needed, aspirin. We will discontinue his Aggrenox. He is on cholecalciferol vitamin D3 50,000 units once a week, Aricept 10 mg once a day, fenofibrate 145 mg once a day, Breo Ellipta 100/25 one puff once a day, hydrocodone/APAP 5/325 one tablet every 6 hours. He is on Atrovent 2 puffs 4 times a day, lisinopril 2.5 mg once a day, loperamide 2 mg every 4 hours as needed, magnesium oxide 400 mg tablet twice a day, Namenda 10 mg twice a day, metformin 500 mg twice a day. FINAL DISCHARGE DIAGNOSES: 1. Acute blood loss anemia with hemoglobin and hematocrit dropped down to 6.4 and 18, for which he received 2 units of packed RBCs. As of yesterday, hemoglobin 10, hematocrit 30. 2. Aggrenox-induced peptic ulcer disease that was discontinued. 3. Acute kidney injury, resolved. His BUN and creatinine are down to 12 and 1.4. 4. Severe protein-calorie malnutrition, serum albumin is only 2.6 g/dL. 5. Aspiration pneumonia, for which he has completed treatment with IV and oral antibiotic. 6. Sepsis, for which he was treated with Zyvox and Zosyn as well as oral Augmentin, complete the course of treatment. 7. Other medical problems include: A. Dementia of Alzheimer's type. B. Hypertension. C. Type 2 diabetes mellitus. D. Hyperlipidemia. E. Chronic obstructive pulmonary disease. F. Chronic back pain. G. Constipation. H. The patient is known to be positive for COVID-19, currently in isolation. 8. Intermittent bradyarrhythmia that is asymptomatic and apparently the director franchise sales initially decided to place a permanent pacemaker. However, given the fact that he is COVID positive, this procedure could not be done at the [facility] nor cannot it be done at OR and according to Dr. Cha, the patient can safely be discharged to a long term facility and once it is negative, he can come back and have the pacemaker placed safely. ONEAL MENA MD DR: Terrence JOB#: [id number] / [id number]
[2020-03-18] MEDS: AMOXICILLIN/K CLAV 500/125MG TABLET. PO SCH (12:18)
--- NOTE | 2020-03-18 12:45 | NUR ---
SW following. Spoke with RN and CM. Reviewed chart. Pt clear for discharge today per Dr. Gonzalez. Pt will not have the pacemaker per RN. SW phoned and faxed updated discharge notes to admissions with [facility]. Clinicals are in a packet ready to be sent with patient. RN to call report to the nurse on the [facility] at [facility], , (fax). RONALDO called [facility] and they still have the information from yesterdays cancelled trip and [facility] scheduled the transport for today at 1600. No further SW needs at this time. [facility] and [facility] both communicated understanding that pt is COVID positive and will require quarantine. No further SW needs at this time. Addendum: 03/18/20 at 1338 by OSCAR HIGGINS Confirmed discharge with guardian Oscar and outpatient facility physical therapist Veronika and all are agreeable to discharge today [facility] back to [facility] with cardiology follow up out-patient.
[2020-03-18 15:00] VITALS: BP 155/78
--- NOTE | 2020-03-18 15:19 | NUR ---
Discharge Note: [facility] Reported given to NurseLeta at [facility]. Reports about patient hospital stay and next steps to take to proceed for pacemaker placement per Cardiology disucssed with her. Cardiology telephone and fax number shared with her. Central line dc. Awating transport to [facility] patient.
== END 2020-03-18 17:49 | DRG 871 ==
LOC: 1 WEST ICU 01:36 → 6 SOUTH 03-11 03:23
PROVIDERS: ADMIT Internal Medicine; ATTEND Internal Medicine
PROC: 30233N1 Transfusion of Nonautologous Red Blood Cells into Peripheral Vein, Percutaneous Approach (ICD-10-PCS; principal; 2020-03-07)
DX: A41.89 Other specified sepsis (principal); E43 Unspecified severe protein-calorie malnutrition; J69.0 Pneumonitis due to inhalation of food and vomit; R57.8 Other shock; U07.1 COVID-19; K27.4 Chronic or unspecified peptic ulcer, site unspecified, with hemorrhage; K57.91 Diverticulosis of intestine, part unspecified, without perforation or abscess with bleeding; N17.9 Acute kidney failure, unspecified; D62 Acute posthemorrhagic anemia; F05 Delirium due to known physiological condition; I24.8 Other forms of acute ischemic heart disease; J44.0 Chronic obstructive pulmonary disease with (acute) lower respiratory infection; E11.9 Type 2 diabetes mellitus without complications; E55.9 Vitamin D deficiency, unspecified; E78.5 Hyperlipidemia, unspecified; E87.6 Hypokalemia; F02.80 Dementia in other diseases classified elsewhere, unspecified severity, without behavioral disturbance, psychotic disturbance, mood disturbance, and anxiety; F32.9 Major depressive disorder, single episode, unspecified; F41.9 Anxiety disorder, unspecified; G30.9 Alzheimer's disease, unspecified; G89.29 Other chronic pain; H91.90 Unspecified hearing loss, unspecified ear; I10 Essential (primary) hypertension; I25.10 Atherosclerotic heart disease of native coronary artery without angina pectoris; I44.1 Atrioventricular block, second degree; I49.8 Other specified cardiac arrhythmias; J30.2 Other seasonal allergic rhinitis; K59.09 Other constipation; K80.20 Calculus of gallbladder without cholecystitis without obstruction; N20.0 Calculus of kidney; R29.6 Repeated falls; T39.395A Adverse effect of other nonsteroidal anti-inflammatory drugs [NSAID], initial encounter; Z82.49 Family history of ischemic heart disease and other diseases of the circulatory system; Z91.81 History of falling; M19.90 Unspecified osteoarthritis, unspecified site; Z68.34 Body mass index [BMI] 34.0-34.9, adult
CPT/HCPCS: 36415; 71045; 80048; 80053; 83605; 83615; 83735; 84484; 85014; 85018; 85025; 85027; 86850; 86900; 86901; 86920; 87493; C9113; J2020; J2405; J2543; J3010; J3475; J3490; J7030; P9016; 97116-GP; G0378; U0003-CS